=== PATIENT | female | born 1950 | race Caucasian/White ===

== ENCOUNTER 2018-10-08 00:30 | Outpatient (CLI) | payer OTHER, SELFPAY ==
--- NOTE | 2018-10-08 14:00 | MERGE_ITS ---
*[facility]* *[facility]* [address] [place] [address] Date of study: 10/08/2018 Transthoracic Echocardiography M-mode, complete 2D, complete spectral Doppler, and color Doppler *STUDY CONCLUSIONS* Summary: 1. Left ventricle: The cavity size was normal. Wall thickness was increased in a pattern of mild LVH. Systolic function was hyperdynamic. The estimated ejection fraction was 65-70%. There was no dynamic obstruction. Wall motion was normal; there were no regional wall motion abnormalities. 2. Aortic valve: There was very mild stenosis. Peak velocity (S): 2.5m/sec. Mean gradient (S): 11mm Hg. Valve area (VTI): 1.9cm^2. 3. Mitral valve: Mildly to moderately calcified annulus. 4. Right ventricle: The cavity size was normal. Wall thickness was normal. Systolic function was normal. *PATIENT PRESENTATION* Height: 162.6cm ((64in) ) S/D Pressure: 117 / 69 Weight: 94.8kg ((208.6lb) ) BSA: 2.11m^2 Test start time: 02:15 PM. Test stop time: 03:15 PM. ORDERING Katherine Hassan REFERRING Katherine Hassan PERFORMING Unknown PERFORMING [facility] SUPERVISOR AGENCY APPOINTMENTS RT Aylin EmersonR)(SHELLY)DENNIS *PROCEDURE DATA* Procedure information: The patient was identified by two identifiers. This study was interpreted by [facility]. Pertinent images and digital data are archived for permanent storage and are available for subsequent review. No prior study was available for comparison. Study status: Routine. Transthoracic echocardiography. M-mode, complete 2D, complete spectral Doppler, and color Doppler. A Transthoracic Echocardiogram was performed. Scanning was performed from the parasternal, apical, subcostal, and suprasternal notch acoustic windows. Images were obtained using an [id number] cardiac ultrasound machine. Image quality was adequate. Study completion: The patient tolerated the procedure well. There were no complications. History: PMH: Heart murmur systolic. *CARDIAC ANATOMY* Left ventricle: The cavity size was normal. Wall thickness was increased in a pattern of mild LVH. Systolic function was hyperdynamic. The estimated ejection fraction was 65-70%. There was no dynamic obstruction. Wall motion was normal; there were no regional wall motion abnormalities. Diastolic parameters were not diagnostic. Aortic valve: Trileaflet; normal thickness, mildly calcified leaflets. Mobility was not restricted. Doppler: There was very mild stenosis. There was no significant regurgitation. VTI ratio of LVOT to aortic valve: 0.55. Valve area (VTI): 1.9cm^2. Indexed valve area (VTI): 0.9cm^2/m^2. Peak velocity ratio of LVOT to aortic valve: 0.54. Valve area (Vmax): 1.9cm^2. Indexed valve area (Vmax): 0.9cm^2/m^2. Mean velocity ratio of LVOT to aortic valve: 0.58. Valve area (Vmean): 2cm^2. Indexed valve area (Vmean): 0.9cm^2/m^2. Mean gradient (S): 11mm Hg. Peak gradient (S): 24.6mm Hg. Aorta: Aortic root: The aortic root was normal in size. Ascending aorta: The ascending aorta was normal in size. Mitral valve: Mildly to moderately calcified annulus. Mobility was not restricted. Doppler: Transvalvular velocity was within the normal range. There was no evidence for stenosis. There was no significant regurgitation. Valve area by pressure half-time: 2.6cm^2. Indexed valve area by pressure half-time: 1.2cm^2/m^2. Peak gradient (D): 2.4mm Hg. Left atrium: The atrium was normal in size. Right ventricle: The cavity size was normal. Wall thickness was normal. Systolic function was normal. Pulmonic valve: Doppler: Transvalvular velocity was within the normal range. There was no evidence for stenosis. There was no significant regurgitation. Tricuspid valve: Structurally normal valve. Doppler: Transvalvular velocity was within the normal range. There was no evidence for stenosis. There was mild regurgitation. Pulmonary artery: Pulmonary systolic pressure was within the normal range, in the range of 30mm Hg to 35mm Hg. Right atrium: The atrium was normal in size. Pericardium: There was no pericardial effusion. Systemic veins: Inferior vena cava: Well visualized. The vessel was patent and normal in size. The respirophasic diameter changes were blunted (less than 50%). Baseline ECG: Sinus bradycardia. Measurements Left ventricle Value Reference LV ID, ED, PLAX 4.3 cm 3.5 - 6.0 LV ID, ES, PLAX 2.8 cm 2.1 - 4.0 LV PW thickness, ED, PLAX 1.3 cm LV end-diastolic volume, 1-p A2C 61 ml LV ejection fraction, 1-p A2C 69 % LV end-diastolic volume, 1-p A4C 56 ml LV ejection fraction, 1-p A4C 73 % LV e', lateral 0.085 m/sec LV E/e', lateral 9 LV e', medial 0.061 m/sec LV E/e', medial 13 LV e', average 0.073 m/sec LV E/e', average 11 Ventricular septum Value Reference IVS thickness, ED, PLAX 1.2 cm LVOT Value Reference LVOT ID, A-P 2.1 cm LVOT area 3.5 cm^2 LVOT peak velocity, S 1.35 m/sec LVOT mean velocity, S 0.9 m/sec LVOT VTI, S 27.5 cm LVOT peak gradient, S 7.3 mm Hg LVOT mean gradient, S 3.7 mm Hg Stroke volume (SV), LVOT DP 95 ml Stroke index (SV/bsa), LVOT DP 45 ml/m^2 Aortic valve Value Reference Aortic valve peak velocity, S 2.5 m/sec Aortic valve mean velocity, S 1.56 m/sec Aortic valve VTI, S 50.0 cm Aortic mean gradient, S 11 mm Hg Aortic peak gradient, S 24.6 mm Hg VTI ratio, LVOT/AV 0.55 Aortic valve area, VTI 1.9 cm^2 Velocity ratio, peak, LVOT/AV 0.54 Aortic valve area, peak velocity 1.9 cm^2 Velocity ratio, mean, LVOT/AV 0.58 Aortic valve area, mean velocity 2 cm^2 Aortic valve area/bsa, mean velocity 0.9 cm^2/m^2 Aorta Value Reference Aortic root ID, ED 3.0 cm Ascending aorta ID, A-P, S 3.3 cm Left atrium Value Reference LA ID, A-P, ES 3.2 cm LA ID/bsa, A-P 1.5 cm/m^2 <=2.2 LA area, ES, A4C 20.9 cm^2 8.8 - 23.4 LA area, ES, A2C 22 cm^2 LA volume/bsa, ES, 1-p A4C 31 ml/m^2 LA volume, ES, 2-p 62 ml LA volume/bsa, ES, 2-p 29 ml/m^2 LA/aortic root ratio 1.07 Mitral valve Value Reference Mitral E-wave peak velocity 0.77 m/sec Mitral A-wave peak velocity 0.92 m/sec Mitral deceleration time (H) 295 ms 150 - 230 Mitral pressure half-time 86 ms Mitral peak gradient, D 2.4 mm Hg Mitral E/A ratio, peak 0.84 Mitral valve area, PHT, DP 2.6 cm^2 Pulmonary veins Value Reference Pulmonary vein peak velocity, S 0.74 m/sec Pulmonary vein peak velocity, D 0.47 m/sec Pulmonary vein velocity ratio, peak, 1.58 S/D Pulmonary vein A-wave reversal peak 0.34 m/sec velocity Pulmonary vein A-wave reversal 135 ms duration Tricuspid valve Value Reference Tricuspid regurg peak velocity 2.7 m/sec Tricuspid peak RV-RA gradient 28.9 mm Hg Right atrium Value Reference RA area, ES, A4C 18 cm^2 8.3 - 19.5 Legend: (L) and (H) deana values outside specified reference range. I have personally reviewed the images and have reviewed and edited the reported findings. Electronically signed by Alberto Garcia 10/08/2018 15:55
== END 2018-10-08 00:50 ==
PROVIDERS: PCP Family Medicine; Visit Provider Family Medicine
DX: R01.1 Cardiac murmur, unspecified (principal); I35.0 Nonrheumatic aortic (valve) stenosis
CPT/HCPCS: 93306

== ENCOUNTER 2019-03-14 10:17 | Outpatient (REF) | payer OTHER, SELFPAY ==
[2019-03-14 20:03] LABS: Abs Immature Grans 0.01 k/cumm (0.0-0.09); Absolute Basophil Count 0.04 k/cumm (0.0-0.2); Absolute Eosinophil Count 0.14 k/cumm (0.0-0.7); Absolute Lymphocyte Count 1.39 k/cumm (1.2-3.4); Absolute Monocyte Count 0.38 k/cumm (0.11-0.7); Absolute Neutrophil Count 2.24 k/cumm (1.2-6.7); Eosinophils % 3.3; HCT 42.2 % (36.0-46.0); HGB 14.1 g/dL (12.0-15.5); Immature Grans % 0.2; Lymphocytes % 33.1; Mean Corp. HGB Concentration 33.4 g/dL (32.0-36.0); Mean Corpuscular Hemoglobin 33.4 pg (27.0-33.0); Neutrophils % 53.4; Platelet Count 102 x1000/uL (130-400); RBC 4.22 m/cumm (4.00-5.20); RBC Distribution Width 12.8 % (11.7-14.6)
[2019-03-14 20:45] LABS: ALT 57 U/L (12-78); AST 56 U/L (15-37); Albumin 3.5 g/dL (3.4-5.0); Alkaline Phosphatase 75 U/L (46-116); BUN 23 mg/dL (7-18); Bilirubin, Total 1.4 mg/dL (0.2-1.0); CREATININE 1.21 mg/dL (0.55-1.02); Chloride 107 mmol/L (98-107); Cholesterol 170 mg/dL (50-200); Estimated GFR 43.99 (mL/min/1.73m2); Glucose 98 mg/dL (70-100); HDL Cholesterol 64 mg/dL (40-60); LDL CHOLESTEROL 88 mg/dL (<100); Potassium 4.7 mmol/L (3.5-5.1); Sodium 142 mmol/L (136-145); Total Protein 6.7 g/dL (6.4-8.2); Triglyceride 102 mg/dL (30-150)
== END 2019-03-14 10:37 ==
LOC: NCHCN 10:17
PROVIDERS: PCP Family Medicine; Visit Provider Family Medicine
DX: E78.5 Hyperlipidemia, unspecified (principal); I10 Essential (primary) hypertension; N95.0 Postmenopausal bleeding; K76.0 Fatty (change of) liver, not elsewhere classified
CPT/HCPCS: 80053; 80061; 83721; 85025

== ENCOUNTER 2019-12-08 16:09 | Outpatient (REF) | payer OTHER, SELFPAY ==
--- NOTE | 2019-12-08 15:30 | SKI_PTH ---
PATIENT: Jory Fleming LOC: [facility] [place] U#:[id number] AGE/SX: 69/F ROOM: RE12/08/[address]: Davis Boggs DO : 1950 BED: DIS: 12/08/2019 SPEC #: [id number] RECD: 12/08/19 18:10 STATUS: NIC REQ #: [id number] MIKI: 12/08/19 15:[address]: Davis Boggs DEPT: Surgical Specimen RECD BY: Betty Thayer ENTERED: 12/08/19 18:11 SP TYPE: SKI OTHR DR: Katherine Hassan V Tissues: 1 - SKIN BIOPSY(SHAVE/PUNCH) Procedures: SKIN LEVEL 4 Comments: [id number]
== END 2019-12-08 16:29 ==
LOC: LBN 16:09
PROVIDERS: PCP Family Medicine; Visit Provider Otolaryngology Otolaryngology/Facial Plastic Surgery
DX: H00.15 Chalazion left lower eyelid (principal); H01.8 Other specified inflammations of eyelid
CPT/HCPCS: 88305

== ENCOUNTER 2020-03-10 12:20 | Outpatient (REF) | payer OTHER, SELFPAY ==
[2020-03-10 19:23] LABS: HCT 40.3 % (36.0-46.0); HGB 13.9 g/dL (12.0-15.5); Mean Corp. HGB Concentration 34.5 g/dL (32.0-36.0); Mean Corpuscular Hemoglobin 34.2 pg (27.0-33.0); Mean Corpuscular Volume 99.3 fL (80-95); Mean Platelet Volume 12.5 fL (8.0-11.0); Platelet Count 106 x1000/uL (130-400); RBC 4.06 m/cumm (4.00-5.20); RBC Distribution Width 12.3 % (11.7-14.6); White Blood Cell Count 3.57 k/cumm (4.4-10.8)
[2020-03-10 20:48] LABS: ALT 70 U/L (14-59); AST 79 U/L (15-37); Albumin 3.6 g/dL (3.4-5.0); Alkaline Phosphatase 74 U/L (46-116); Anion Gap 10.8 mmol/L (3-11); BUN 12 mg/dL (7-18); Bilirubin, Total 1.4 mg/dL (0.2-1.0); CO2 23.2 mmol/L (21.0-32.0); CREATININE 1.18 mg/dL (0.55-1.02); Calcium 9.1 mg/dL (8.5-10.1); Chloride 106 mmol/L (98-107); Estimated GFR 45.15 (mL/min/1.73m2); Glucose 234 mg/dL (74-106); HDL Cholesterol 53 mg/dL (40-60); LDL CHOLESTEROL 96 mg/dL (<100); Potassium 3.7 mmol/L (3.5-5.1); Sodium 140 mmol/L (136-145); Total Protein 6.9 g/dL (6.4-8.2)
[2020-03-10 21:02] LABS: Uric Acid 6.7 mg/dL (2.6-6.0)
[2020-03-12 08:25] LABS: CEA 1.4 ng/mL (See Note)
== END 2020-03-10 12:40 ==
LOC: NCHCN 12:20
PROVIDERS: PCP Family Medicine; Visit Provider Nurse Practitioner Family
DX: R22.30 Localized swelling, mass and lump, unspecified upper limb (principal); K74.69 Other cirrhosis of liver; I10 Essential (primary) hypertension; E78.5 Hyperlipidemia, unspecified; Z85.038 Personal history of other malignant neoplasm of large intestine
CPT/HCPCS: 80053; 83721; 85027; 82378; 83718; 84550

== ENCOUNTER 2020-03-26 11:02 | Outpatient (REF) | payer OTHER, SELFPAY ==
--- NOTE | 2020-03-26 10:00 | PAPFT_PTH ---
PATIENT: Jory Fleming LOC: [facility]#:[id number] AGE/SX: 70/F ROOM: RE03/26/[address]: Katherine Hassan V : 1950 BED: DIS: 03/26/2020 SPEC #: [id number] RECD: 03/29/20 12:33 STATUS: NIC RESouleymane #: [id number] MIKI: 03/26/20 10:[address]: Katherine Hassan V DEPT: [facility] Cytology RECD BY: Betty Thayer Tissues: 1 - CX/ENDOCX FOR PAP SMEARS Procedures: PAP THIN PREP/UVM Screening HPV DNA PROBE Comments: [id number]
[2020-03-29 13:31] LABS: Lyme Ab w Rflx to Lyme Confirm Negative (Negative)
[2020-03-30 20:05] LABS: Anaplasma phagocytophilum Negative (Negative); B. miyamotoi PCR Negative (Negative); Babesia divergens/MO-1 Negative (Negative); Babesia duncani Negative (Negative); Babesia microti Negative (Negative); Ehrlichia chaffeensis Negative (Negative); Ehrlichia ewingii/canis Negative (Negative); Ehrlichia muris eauclairensis Negative (Negative)
== END 2020-03-26 11:22 ==
LOC: NCHCN 11:02
PROVIDERS: PCP Family Medicine; Visit Provider Family Medicine
DX: W57.XXXA Bitten or stung by nonvenomous insect and other nonvenomous arthropods, initial encounter (principal); T14.8XXA Other injury of unspecified body region, initial encounter; Z12.4 Encounter for screening for malignant neoplasm of cervix; Z01.419 Encounter for gynecological examination (general) (routine) without abnormal findings; Z11.51 Encounter for screening for human papillomavirus (HPV)
CPT/HCPCS: 87798; 88142; 86618; 87624

== ENCOUNTER 2021-03-21 09:22 | Outpatient (REF) | payer OTHER, SELFPAY ==
[2021-03-21 16:43] LABS: Abs Immature Grans 0.01 10^3/uL (0.0-0.06); Absolute Basophil Count 0.04 10^3/uL (0.0-0.2); Absolute Eosinophil Count 0.13 10^3/uL (0.0-0.7); Absolute Lymphocyte Count 1.18 10^3/uL (1.2-3.4); Absolute Monocyte Count 0.35 10^3/uL (0.1-0.8); Absolute Neutrophil Count 1.99 10^3/uL (1.2-6.7); Basophils % 1.1; Eosinophils % 3.5; HCT 40.4 % (36.0-46.0); HGB 13.9 g/dL (11.2-15.7); Immature Grans % 0.3; Lymphocytes % 31.9; MCH 34.7 pg (27.0-33.0); MCHC 34.4 % (32.0-36.0); MCV 100.7 fL (80-95); MPV 11.9 fL (8.0-11.0); Monocytes % 9.5; Neutrophils % 53.7; Nucleated RBC 0 %; Platelet Count 104 10^3/uL (130-400); RBC 4.01 10^6/uL (3.93-5.22); RDW-SD 45.2 fL
[2021-03-21 17:00] LABS: ALT 89 U/L (14-59); AST 95 U/L (15-37); Albumin 3.5 g/dL (3.4-5.0); Alkaline Phosphatase 70 U/L (46-116); Anion Gap 8.8 mmol/L (3-11); BUN 14 mg/dL (7-18); Bilirubin, Total 1.4 mg/dL (0.2-1.0); CO2 27.2 mmol/L (21.0-32.0); CREATININE 1.1 mg/dL (0.55-1.02); Calcium 9.3 mg/dL (8.5-10.1); Chloride 109 mmol/L (98-107); Estimated GFR 48.82 (mL/min/1.73m2); Glucose 118 mg/dL (74-106); Potassium 4.6 mmol/L (3.5-5.1); Sodium 145 mmol/L (136-145); Total Protein 6.7 g/dL (6.4-8.2)
[2021-03-21 17:21] LABS: Hemoglobin A1C 5.9 % (<5.7)
[2021-03-22 10:00] LABS: Hepatitis B Surface Ag Negative (Negative)
[2021-03-22 11:02] LABS: Hep A Total Ab w Rflx IgM Positive (Negative)
[2021-03-22 12:31] LABS: Hep A Antibody IgM Negative (Negative)
[2021-03-23 09:01] LABS: AFP Tumor Marker 4.8 ng/mL (<8.1)
== END 2021-03-21 09:23 | disposition home or self-care (01) ==
LOC: NCHCN 09:22
PROVIDERS: PCP Family Medicine; Visit Provider Family Medicine
DX: I10 Essential (primary) hypertension (principal); K76.0 Fatty (change of) liver, not elsewhere classified; K74.69 Other cirrhosis of liver; K52.9 Noninfective gastroenteritis and colitis, unspecified; R73.09 Other abnormal glucose
CPT/HCPCS: 80053; 86709; 87340; 82105; 83036; 85025

== ENCOUNTER 2021-05-26 03:07 | Outpatient (CLI) | payer OTHER, SELFPAY ==
--- NOTE | 2021-05-26 | DI.US_ITS ---
Exam(s) US ABDOMEN EXAM: US ABDOMEN CLINICAL HISTORY: CIRRHOSIS,K74.60 TECHNIQUE: Ultrasound of complete upper abdomen performed using standard protocol. COMPARISON: US ABDOMEN ULTRASOUND (P) from 11/29/2015 US Cardiac from 10/08/2018 FINDINGS: There is no ascites evident. LIVER: Liver is prominent in size and is again noted be hyperechoic indicating steatosis. Appearance of the liver is somewhat cirrhotic. There are no discrete focal hepatic lesions identified. GALLBLADDER/BILIARY: There are gallstones noted. Gallbladder wall is not edematous. Common hepatic duct is not dilated, measuring 2 millimeters. PANCREAS: There is no evidence of pancreatic mass nor dilatation of the pancreatic duct. SPLEEN: The spleen is not enlarged and there are no intrasplenic lesions evident. KIDNEYS:Kidneys exhibit normal size with no evidence of solid mass, nor cysts evident. Small 3 joseline meter echogenic focus in the left kidney may be a small nonobstructive calculus. ABDOMINAL AORTA: There is no evidence of abdominal aortic aneurysm. IVC: Normal diameter where visualized. IMPRESSION: 1. Cholelithiasis. No evidence of obvious acute cholecystitis nor dilatation of the biliary tree. 2. Hepatic steatosis and possible element of cirrhosis. No discrete focal hepatic lesions. No asci jagjit. 3. Possible small 3 millimeter nonobstructive calculus in the left kidney. DATA REPOSITORY:
== END 2021-05-26 03:27 ==
PROVIDERS: PCP Family Medicine; Visit Provider Internal Medicine Gastroenterology
DX: K80.20 Calculus of gallbladder without cholecystitis without obstruction (principal); K76.0 Fatty (change of) liver, not elsewhere classified
CPT/HCPCS: 76700

== ENCOUNTER 2021-09-07 09:50 | Outpatient (REF) | payer MEDICARE, SELFPAY ==
[2021-09-07 14:11] LABS: Abs Immature Grans 0.01 10^3/uL (0.0-0.06); Absolute Basophil Count 0.05 10^3/uL (0.0-0.2); Absolute Eosinophil Count 0.11 10^3/uL (0.0-0.7); Absolute Lymphocyte Count 1.08 10^3/uL (1.2-3.4); Absolute Monocyte Count 0.34 10^3/uL (0.1-0.8); Absolute Neutrophil Count 2.25 10^3/uL (1.2-6.7); Basophils % 1.3; Eosinophils % 2.9; HGB 13.4 g/dL (11.2-15.7); Immature Grans % 0.3; Lymphocytes % 28.1; MCH 34.1 pg (27.0-33.0); MCHC 33.5 % (32.0-36.0); MCV 101.8 fL (80-95); MPV 12.3 fL (8.0-11.0); Monocytes % 8.9; Neutrophils % 58.5; Nucleated RBC 0 %; Platelet Count 95 10^3/uL (130-400); RBC 3.93 10^6/uL (3.93-5.22); RDW-SD 45.6 fL; WBC 3.84 10^3/uL (4.4-10.8)
[2021-09-07 15:44] LABS: Hemoglobin A1C 5.7 % (<5.7)
[2021-09-07 15:46] LABS: Albumin 3.5 g/dL (3.4-5.0); BUN 11 mg/dL (7-18); Bilirubin, Total 1.5 mg/dL (0.2-1.0); CREATININE 1.1 mg/dL (0.55-1.02); Estimated GFR 48.82 (mL/min/1.73m2); Glucose 98 mg/dL (74-106); Total Protein 6.7 g/dL (6.4-8.2)
[2021-09-07 15:47] LABS: ALT 84 U/L (14-59); AST 78 U/L (15-37); Alkaline Phosphatase 70 U/L (46-116); Anion Gap 7.7 mmol/L (3-11); CO2 29.3 mmol/L (21.0-32.0); Chloride 108 mmol/L (98-107); Creatine Kinase 52 U/L (26-192); Potassium 4.6 mmol/L (3.5-5.1); Sodium 145 mmol/L (136-145)
[2021-09-08 04:12] LABS: Vitamin D 25 Total 58.7 ng/mL (30-100)
== END 2021-09-07 09:51 | disposition home or self-care (01) ==
LOC: NCHCN 09:50
PROVIDERS: PCP Family Medicine; Visit Provider Family Medicine
DX: Z00.00 Encounter for general adult medical examination without abnormal findings (principal)
CPT/HCPCS: 80053; 82306; 82550; 83036; 85025

== ENCOUNTER 2022-03-06 17:05 | Outpatient (REF) | payer MEDICARE, SELFPAY ==
[2022-03-06 21:28] LABS: HCT 43.6 % (36.0-46.0); HGB 14.5 g/dL (11.2-15.7); MCH 34.4 pg (27.0-33.0); MCHC 33.3 % (32.0-36.0); MCV 103 fL (80-95); MPV 12.4 fL (8.0-11.0); Platelet Count 105 10^3/uL (130-400); RBC 4.22 10^6/uL (3.93-5.22); RDW 12.6 % (11.7-14.6); RDW-SD 47.8 fL; WBC 3.69 10^3/uL (4.4-10.8)
[2022-03-06 21:52] LABS: ALT 102 U/L (14-59); AST 116 U/L (15-37); Albumin 3.8 g/dL (3.4-5.0); Alkaline Phosphatase 75 U/L (46-116); Anion Gap 11.4 mmol/L (3-11); BUN 15 mg/dL (7-18); Bilirubin, Total 1.7 mg/dL (0.2-1.0); CO2 23.6 mmol/L (21.0-32.0); CREATININE 1.2 mg/dL (0.55-1.02); Calcium 8.9 mg/dL (8.5-10.1); Calculated LDL 98 mg/dL (<100); Chloride 107 mmol/L (98-107); Cholesterol 191 mg/dL (<200); Estimated GFR 44.04 (mL/min/1.73m2); Glucose 121 mg/dL (74-106); HDL Cholesterol 72 mg/dL (40-60); Potassium 4.3 mmol/L (3.5-5.1); Sodium 142 mmol/L (136-145); Triglyceride 105 mg/dL (<150)
[2022-03-08 11:35] LABS: Lyme Ab w Rflx to Lyme Confirm Negative (Negative)
[2022-03-09 19:12] LABS: Anaplasma phagocytophilum Negative (Negative); B. miyamotoi PCR Negative (Negative); Babesia divergens/MO-1 Negative (Negative); Babesia duncani Negative (Negative); Babesia microti Negative (Negative); Ehrlichia chaffeensis Negative (Negative); Ehrlichia ewingii/canis Negative (Negative); Ehrlichia muris eauclairensis Negative (Negative)
== END 2022-03-06 17:06 | disposition home or self-care (01) ==
LOC: NCHCN 17:05
PROVIDERS: PCP Family Medicine; Visit Provider Family Medicine
DX: E78.5 Hyperlipidemia, unspecified (principal); N28.9 Disorder of kidney and ureter, unspecified; K74.69 Other cirrhosis of liver; T14.8XXA Other injury of unspecified body region, initial encounter; W57.XXXA Bitten or stung by nonvenomous insect and other nonvenomous arthropods, initial encounter
CPT/HCPCS: 80053; 80061; 85027; 87798; 86618

== ENCOUNTER 2023-05-22 09:30 | Outpatient (REF) | payer MEDICARE, SELFPAY ==
--- OUTSIDE RECORDS SUMMARY | 2023-05-22 09:35 | XMS_ITS | Continuity of Care Document ---
Author Name Unknown Organization [facility] Ambulatory Clinics Address [address] [place] [address] Care Team Providers Care Refrigeration Manager Name Role Phone Katherine Hassan Primary Care Physician [phone] Encounter [facility] FIN NBR [id number] Date(s): 10/26/22 - 10/26/22 [facility] Ambulatory Clin[facility] [address] [place] [address]- Encounter Diagnosis Cirrhosis - non-alcoholic(Discharge Diagnosis) - 10/26/22 Hepatitis B vaccination administered at current visit(Discharge Diagnosis) - 10/26/22 Angiodysplasia of colon(Discharge Diagnosis) - 10/26/22 Discharge Disposition: Home or Self Care Attending Physician: Jessy Ross APRN Allergies, Adverse Reactions, Alerts Substance Reaction Severity Status codeine Headache Unknown Active penicillin Fever Rash Unknown Active anastrozole Unknown Active Percocet Unknown Active Assessment and Plan Future Appointments Future Scheduled Tests Radiology* US Abdomen Limited 10/26/22 Functional Status 10/26/22 Living Environment Home Environment No qualifying data available Recent Travel History No recent travel Other exposure to Infectious Disease Non e Immunizations Given and Recorded Vaccine Date Status Refusal Reason hepatitis B adult vaccine 1 10/26/22 Given 1Result Comment: Pt will get subsequent doses at PCP at her request. Medications biotin 10 mg oral tablet 10 mg = 1 tab, Oral, Daily, # 30 tab, 0 Refill(s) Start Date: 08/29/22 Status: Ordered calcium carbonate 600 mg (elemental Ca 240 mg) oral tablet 600 mg 1 tab, Oral, Daily, # 60 tab, 0 Refill(s) Start Date: 08/29/22 Status: Ordered Colace 100 mg oral capsule 100 mg = 1 cap, Oral, BID, PRN as needed for constipation, # 20 cap, 0 Refill(s) Start Date: 08/29/22 Status: Ordered famciclovir 125 mg oral tablet 125 mg = 1 tab, Oral, BID, PRN cold sore, # 10 tab, 0 Refill(s) Start Date: 08/29/22 Stop Date: 09/03/22 Status: Ordered Fish Oil oral capsule 1 cap, Oral, Daily, # 100 cap, 0 Refill(s) Start Date: 08/29/22 Status: Ordered furosemide 20 mg oral tablet 20 mg = 1 tab, Oral, Daily, # 30 tab, 0 Refill(s) Start Date: 08/29/22 Status: Ordered gabapentin 100 mg oral capsule 100 mg = 1 cap, Oral, TID, # 90 cap, 0 Refill(s) Start Date: 08/29/22 Status: Ordered Glucosamine Chondroitin oral capsule 1 cap, Oral, Daily, # 50 cap, 0 Refill(s) Start Date: 08/29/22 Status: Ordered lisinopril 5 mg oral tablet 5 mg = 1 tab, Oral, Daily, # 30 tab, 0 Refill(s) Start Date: 08/29/22 Status: Ordered potassium chloride 20 mEq oral tablet, extended release 20 mEq = 1 tab, Oral, Daily, # 30 tab, 0 Refill(s) Start Date: 08/29/22 Status: Ordered simvastatin 10 mg oral tablet 10 mg = 1 tab, Oral, every day at bedtime, # 30 tab, 0 Refill(s) Start Date: 08/29/22 Status: Ordered traMADol 50 mg oral tablet 50 mg = 1 tab, Oral, every 4 hr, PRN as needed for pain, 0 Refill(s) Start Date: 08/29/22 Status: Ordered Vitamin D3 1000 intl units oral tablet 25 mcg = 1 tab, Oral, Daily, # 30 tab, 0 Refill(s) Start Date: 08/29/22 Status: Ordered vitamin E 400 intl units oral capsule 400 IntlUnit = 1 cap, Oral, Daily, # 30 cap, 0 Refill(s) Start Date: 08/29/22 Status: Ordered Problem List Condition Confirmation Course Effective Dates Status H ealth Status Informant Aortic valve stenosis Confirmed Active Arthralgia Confirmed Active Breast cancer Confirmed Active Cancer of colon Confirmed Active Cataract Confirmed Active Cirrhosis - non-alcoholic Confirmed Active Endometrial polyp Confirmed Active Family history of colon cancer Confirmed Active Fatty liver Confirmed Active Hearing loss Confirmed Active Heart murmur Confirmed Active HLD - Hyperlipidemia Confirmed Active HTN - Hypertension Confirmed Active Osteoarthritis Confirmed Active Ovarian mass Confirmed Active Perforation of colon Confirmed Active Renal insufficiency 1 Confirmed Active Squamous blepharitis 2 Confirmed Active 1mild 2left eye, upper and lower lids Procedures Procedure Date Related Diagnosis Body Site Status Esophagogastroduodenoscopy a nd Colonoscopy with Biopsy 1 10/12/22 Comple crys Colonoscopy, flexible; diagn ostic, including collection of specimen(s) by brushing or washing, when performed (separate procedure) 10/11/22 Completed Esophagogastroduodenoscopy, flexible, transoral; diagnostic, including collection of specimen(s) by brushing or washing, when performed (separate procedure) 10/11/22 Completed Bilateral oopherectomy Co mpleted Colonoscopy Completed Large bowel resection 2 C ompleted Total knee replacement Co mpleted 1auto-populated from documented surgical case [id number] Vital Signs Most recent to oldest [Reference Range]: 1 Temperature Temporal Artery [36-38 Deg C ] 36.7 Deg C (10/26/22 8:28 AM) Peripheral Pulse Rate [60-100 bpm] 65 bp m (10/26/22 8:28 AM) Blood Pressure [90-140/60-90 mmHg] 132/7 8mmHg (10/26/22 8:28 AM) Weight 94.2 kg (10/26/22 8:28 AM) Weight Measured (lbs) 207.675 lb (10/26/22 8:28 AM) [place] Body Weight Calculated 57 kg (10/26/22 8:28 AM) Height 165.1 cm (10/26/22 8:28 AM) Height/Length Measured (inches) 65 inch (10/26/22 8:28 AM) BSA Measured 2.08 m2 (10/26/22 8:28 AM) Body Mass Index 34.56 kg/m2 (10/26/22 8:28 AM) Social History Social History Type Response Tobacco Never tobacco user T obacco Use:. Sex Physician Outpatient Note * Jessy Ross APRN: PERFORM Event Display: Office Clinic Note Physician Authored Date: [id number] [place] :1950 Age:72 years Sex:Female Visit Date:10/26/2022 Primary Care Physician: Katherine Hassan Chief Complaint Follow-up EGD and colonoscopy History of Present Illness Patient is a 72-year-old female patient of Dr. Katherine Hassan with a history of uncomplicated Pérez cirrhosis.?? She is here??today as an established patient to follow-up??EGD and colonoscopy. ?? Patient underwent endoscopic ultrasound at [facility] on 10/30/2017 with liver biopsy done at that time. I do not have the pathology report. Patient has been carrying a diagnosis of Pérez cirrhosis since that time. EGD showed no endoscopic evidence of portal hypertension. She has had no compli cations/decompensation. No family history of liver disease. She denies black or bloody stools, lower extremity edema, increasing abdominal girth, easy bruising, or confusion. ?? Patient underwent a perforation of her colon at her index colonoscopy. Last colonoscopy was 08/16/2016 for history of tubulovillous adenoma which was a normal examination with 5-year follow-up recommended. She has not had a follow- up colonoscopy since that time. On 03/02/2022 sodium was 142, total bilirubin 1.7, creatinine 1.2, AST 116, ALT 102, albumin 3.8, platelets of 105,000, MCV 103, hemoglobin 14.5, WBC 3.7. She has not had recent HCC screening. ?? She does not drink alcohol. ??She drinks 2 cups of coffee daily.?? Denies any??gastrointestinal symptoms,??peripheral edema,??changes in gait or mobility. ??Denies any??cognitive or memory dysfunction.?? Denies increasing abdominal girth. ?? 10/12/2022 EGD showed mild portal??hypertensive gastropathy. ?? 10/12/2022 colonoscopy showed??patent colorectal anastomosis.?? There??was no chronic ileocolitis noted. ??There is angiodysplastic??lesion in the proximal ascending colon??and cecum??that was 6 to 8mm in size.?? There was no stigmata of bleeding.?? Segmental biopsies taken throughout??the colon were negative. ?? Family history is remarkable for mother being diagnosed with colon cancer in her 70s, brother from advanced colorectal cancer at 51 years old. Review of Systems Pertinent positives and negatives are discussed in HPI. Physical Exam Vitals & Measurements T:??36.7?C ??(Temporal Artery)?? HR:??65??(Peripheral)?? BP:??132/78?? SpO2:??97%?? HT:??165.1??cm?? WT:??94.2??kg?? BMI:??34.56?? BSA:??2.08?? General: Well-nourished well-developed??female??in no acute distress. HEENT: Head is normocephalic, trachea midline and no cervical lymphadenopathy. ??Sclera are clear. Respiratory: Respirations are even and unlabored. ??Lungs are clear to auscultation. Cardiovascular: Regular rate and rhythm with S1 and S2. Abdomen: Positive bowel sounds x4 quadrants, no masses, no guarding, no tenderness. ??No hepatosplenomegaly. ??Abdomen is soft. Skin: Warm, dry, and pink. ??No spider angiomata, palmar erythema or gynecomastia. Neurological: Alert and oriented x3, speech is clear and gait is steady. Psychological: Pleasant, calm and cooperative. 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 ??EGD's showed mild portal hypertensive gastropathy. ??Advised to repeat in 1 year. ??She is immune to hepatitis A but not to hepatitis B.??first hepatitis B vaccine given today. ??She would like to get her up into her primary care provider's office.?? She will call their office today to make her second appointment for 1 month from now. ??She is due for HCC screening. ??AFP and abdominal ultrasound ordered.?Drink 2 cups of coffee daily. ??She is advised to avoid alcohol??use.?? Weight??loss.?? We will see the patient back in the office??months.?? All of her questions were answered today. Ordered: AFP, Serum, Tumor Marker LC, Blood, Routine, 10/26/22, Once, Lab Collect, Cirrhosis - non-alcoholic, Order for future visit Follow-up Appointment Request [email or web address], *Est. 06/29/23 +/- 28 days, Future Order, f/u PÉREZ cirrohosis, In Approximately, H Gastroenterology Abdomen Limited, 10/26/22, Routine, Reason: HCC screening,cirrhosis, Transport Mode: Ambulatory,Cirrhosis - non-alcoholic, ABN Status: Not Required ?? 2.??Hepatitis B vaccination administered at current visit??Z23 As above. ?? 3.??Angiodysplasia of colon??K55.20 2 angiodysplastic lesions are seen in the colon including the proximal ascending??and sigmoid colon. ??There is no signs of bleeding.?? No cauterization done. ??Advised patient if she develops any melena??or hematochezia she should return??today and may need to be cauterized. ??Segmental biopsies without colitis.?? There is a patent colorectal anastomosis from prior surgery. ??No signs of chronicileocolitis seen.?? It is advised to repeat colonoscopy in 5 years. ?? Voice recognition software utilized which may result in minor residential sales error. Medications and Immunizations This Visit Given hepatitis B adult vaccine, 1 mL, IM. For: Cirrhosis - non-alcoholic Future Orders AFP, Serum, Tumor Marker LC, Blood, Routine, 10/26/22, Once, Lab Collect, Cirrhosis - non-alcoholic, Order for future visit Abdomen Limited, 10/26/22, Routine, Reason: HCC screening,cirrhosis, Transport Mode: Ambulatory,Cirrhosis - non-alcoholic, ABN Status: Not Required Problem List/Past Medical History Ongoing Aortic valve stenosis Arthralgia Breast cancer Cancer of colon Cataract Cirrhosis - non-alcoholic Endometrial polyp Family history of colon cancer Fatty liver Hearing loss Heart murmur HLD - Hyperlipidemia HTN - Hypertension Osteoarthritis Ovarian mass Perforation of colon Renal insufficiency Squamous blepharitis Historical No qualifying data Procedure/Surgical History ???Colonoscopy, flexible; diagnostic, including collection of specimen(s) by brushing or washing, when performed (separate procedure) (10/12/2022)???Esophagogastroduodenoscopy and Colonoscopy with Biopsy (10/12/2022)???Esophagogastroduodenoscopy, flexible, transoral; diagnostic, including collection of specimen(s) by brushing or washing, when performed (separate procedure) (10/12/2022)???Colonoscopy???Large bowel resection???Bilateral oopherectomy???Total knee replacement Medications biotin 10 mg oral tablet, 10 mg= 1 tab, Oral, Daily calcium carbonate 600 mg (elemental Ca 240 mg) oral tablet, 600 mg= 1 tab, Oral, Daily Colace 100 mg oral capsule, 100 mg= 1 cap, Oral, BID, PRN famciclovir 125 mg oral tablet, 125 mg= 1 tab, Oral, BID, PRN Fish Oil oral capsule, 1 cap, Oral, Daily furosemide 20 mg oral tablet, 20 mg= 1 tab, Oral, Daily gabapentin 100 mg oral capsule, 100 mg= 1 cap, Oral, TID Glucosamine Chondroitin oral capsule, 1 cap, Oral, Daily lisinopril 5 mg oral tablet, 5 mg= 1 tab, Oral, Daily potassium chloride 20 mEq oral tablet, extended release, 20 mEq= 1 tab, Oral, Daily simvastatin 10 mg oral tablet, 10 mg= 1 tab, Oral, every night at bedtime traMADol 50 mg oral tablet, 50 mg= 1 tab, Oral, every 4 hr, PRN Vitamin D3 1000 intl units oral tablet, 25 mcg= 1 tab, Oral, Daily vitamin E 400 intl units oral capsule, 400 IntlUnit= 1 cap, Oral, Daily Allergies Percocet anastrozole codeine??(Headache) penicillin??(Fever, Rash) Social History Alcohol Never Electronic Cigarette/Vaping Electronic Cigarette Use: Never. Substance Use Never Tobacco Never tobacco user Tobacco Use:. Family History Cancer: Mother. Heart disease: Father. Family Member(s): ?? FATHER, at age: Unknown. Cause of : Family Member(s): ?? MOTHER, at age: Unknown. Cause of : Immunizations Vaccine Date Status hepatitis B adult vaccine 10/26/2022 Given Comments : Pt will get subsequent doses at PCP at her request. Electronically Signed on 10/26/22 09:04 AM Jessy Ross APRN Patient Care team information Personnel Name: Katherine Hassan Address: Address: [address] [place] [id number]
--- OUTSIDE RECORDS SUMMARY | 2023-05-22 09:36 | XMS_ITS | Continuity of Care Document ---
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(Discharge Diagnosis) - 10/12/22 Unspecified cirrhosis of liver(Discharge Diagnosis) - 10/12/22 Family history of colon cancer(Discharge Diagnosis) - 10/12/22 History of adenomatous polyp of colon(Discharge Diagnosis) - 10/12/22 S/P partial colectomy(Discharge Diagnosis) - 10/12/22 Discharge Disposition: Home or Self Care Attending Physician: Bigg Riley MD Admitting Physician: Bigg Riley MD Referring Physician: Bigg Riley MD Allergies, Adverse Reactions, Alerts Substance Reaction Severity Status codeine Headache Unknown Active penicillin Fever Rash Unknown Active anastrozole Unknown Active Percocet Unknown Active Assessment and Plan Future Appointments Functional Status 10/12/22 ADLs Independent Family Member Travel History No recent t ravel Recent Travel History No recent travel Other exposure to Infectious Disease Non e Medications biotin 10 mg oral tablet 10 [...] non-alcoholic Confirmed Active Endometrial polyp Confirmed Active Fatty liver Confirmed Active Hearing [...] Colonoscopy with Biopsy 1 10/12/22 Comple crys Bilateral oopherectomy Co mpleted Colonoscopy Completed Large bowel resection 2 C ompleted Total knee replacement Co mpleted 1auto-populated from documented surgical case [id number] Vital Signs Most recent to oldest [Reference Range]: 1 2 3 Temperature Tympanic [36.6-37.9 Deg C] 37.4 Deg C (10/12/22 7:45 AM) Temperature Temporal Artery [36-38 Deg C] 36.0 Deg C (10/12/22 9:58 AM) 36.2 Deg C (10/12/22 9:42 AM) 35.9 Deg C *LOW* (10/12/22 9:28 AM) Temperature Temporal Artery (DegF) [97.3-100 Deg F] 97.16 Deg F *LOW* (10/12/22 9:42 AM) 96.62 Deg F *LOW* (10/12/22 9:28 AM) Peripheral Pulse Rate [60-100 bpm] 60 bpm (10/12/22 9:42 AM) 59 bpm *LOW* (10/12/22 9:31 AM) 60 bpm (10/12/22 9:28 AM) Heart Rate Monitored [60-100 bpm] 76 bpm (10/12/22 7:45 AM) Respiratory Rate [12-24 br/min] 12 br/min (10/12/22 9:31 AM) 16 br/min (10/12/22 7:45 AM) Blood Pressure [90-140/60-90 mmHg] 119/76mmHg (10/12/22 9:42 AM) 102/62mmHg (10/12/22 9:31 AM) 101/63mmHg (10/12/22 9:28 AM) Mean Arterial Pressure, Cuff [65-140 mmHg] 90 mmHg (10/12/22 9:42 AM) 75 mmHg (10/12/22 9:31 AM) 76 mmHg (10/12/22 9:28 AM) Mean Arterial Pressure Cuff 90 mmHg (10/12/22 9:42 AM) 74 mmHg (10/12/22 9:31 AM) 73 mmHg (10/12/22 9:28 AM) Blood Pressure Invasive [90-140/60-90 mmHg] 151/81mmHg *HI* (10/12/22 7:45 AM) Weight 90.720 kg (10/09/22 2:10 PM) Weight Dosing 90.720 kg (10/09/22 2:10 PM) Height 165.100 cm (10/09/22 2:10 PM) Height/Length Dosing 165.100 cm (10/09/22 2:10 PM) Social History Social History Type Response Tobacco Never tobacco user T obacco Use:. Sex Hospital Discharge Instructions Patient Education 10/12/2022 08:24:26 Upper Endoscopy, Adult, Care After Upper Endoscopy, Adult, Care After This sheet gives you information about how to care for yourself after your procedure. Your health care provider may also give you more specific instructions. If you have problems or questions, contact your health care provider. What can I expect after the procedure? After the procedure, it is common to have: ??? A sore throat. ??? Mild stomach pain or discomfort. ??? Bloating. ??? Nausea. Follow these instructions at home: ??? Follow instructions from your health care provider about what to eat or drink after your procedure. ??? Return to your normal activities as told by your health care provider. Ask your health care provider what activities are safe for you. ??? Take kkxt-tlh-hevophx and prescription medicines only as told by your health care provider. ??? If you were given a sedative during the procedure, it can affect you for several hours. Do not drive or operate machinery until your health care provider says that it is safe. ??? Keep all follow-up visits as told by your health care provider. This is important. Contact a health care provider if you have: ??? A sore throat that lasts longer than one day. ??? Trouble swallowing. Get help right away if: ??? You vomit blood or your vomit looks like coffee grounds. ??? You have: ??? A fever. ??? Bloody, black, or tarry stools. ??? A severe sore throat or you cannot swallow. ??? Difficulty breathing. ??? Severe pain in your chest or abdomen. Summary ??? After the procedure, it is common to have a sore throat, mild stomach discomfort, bloating, andnausea. ??? If you were given a sedative during the procedure, it can affect you for several hours. Do not drive or operate machinery until your health care provider says that it is safe. ??? Follow instructions from your health care provider about what to eat or drink after your procedure. ??? Return to your normal activities as told by your health care provider. This information is not intended to replace advice given to you by your health care provider. Make sure you discuss any questions you have with your health care provider. Document Revised: 10/12/2020 Document Reviewed: 03/17/2019 [employer] Patient Education ?? 2021 [employer] 10/12/2022 08:24:25 Colonoscopy, Adult, Care After Colonoscopy, Adult, Care After This sheet gives you information about how to care for yourself after your procedure. Your health care provider may also give you more specific instructions. If you have problems or questions, contact your health care provider. What can I expect after the procedure? After the procedure, it is common to have: ??? A small amount of blood in your stool for 24 hours after the procedure. ??? Some gas. ??? Mild cramping or bloating of your abdomen. Follow these instructions at home: Eating and drinking ??? Drink enough fluid to keep your urine pale yellow. ??? Follow instructions from your health care provider about eating or drinking restrictions. ??? Resume your normal diet as instructed by your health care provider. Avoid heavy or fried foods that are hard to digest. Activity ??? Rest as told by your health care provider. ??? Avoid sitting for a long time without moving. Get up to take short walks every 1???2 hours. This is important to improve blood flow and breathing. Ask for help if you feel weak or unsteady. ??? Return to your normal activities as told by your health care provider. Ask your health care provider what activities are safe for you. Managing cramping and bloating ??? Try walking around when you have cramps or feel bloated. ??? Apply heat to your abdomen as told by your health care provider. Use the heat source that your health care provider recommends, such as a moist heat pack or a heating pad. ??? Place a towel between your skin and the heat source. ??? Leave the heat on for 20???30 minutes. ??? Remove the heat if your skin turns bright red. This is especially important if you are unable to feel pain, heat, or cold. You may have a greater risk of getting burned. General instructions ??? If you were given a sedative during the procedure, it can affect you for several hours. Do not drive or operate machinery until your health care provider says that it is safe. ??? For the first 24 hours after the procedure: ??? Do not sign important documents. ??? Do not drink alcohol. ??? Do your regular daily activities at a slower pace than normal. ??? Eat soft foods that are easy to digest. ??? Take ixvh-ang-plefkks and prescription medicines only as told by your health care provider. ??? Keep all follow-up visits as told by your health care provider. This is important. Contact a health care provider if: ??? You have blood in your stool 2???3 days after the procedure. Get help right away if you have: ??? More than a small spotting of blood in your stool. ??? Large blood clots in your stool. ??? Swelling of your abdomen. ??? Nausea or vomiting. ??? A fever. ??? Increasing pain in your abdomen that is not relieved with medicine. Summary ??? After the procedure, it is common to have a small amount of blood in your stool. You may also have mild cramping and bloating of your abdomen. ??? If you were given a sedative during the procedure, it can affect you for several hours. Do not drive or operate machinery until your health care provider says that it is safe. ??? Get help right away if you have a lot of blood in your stool, nausea or vomiting, a fever, or increased pain in your abdomen. This information is not intended to replace advice given to you by your health care provider. Make sure you discuss any questions you have with your health care provider. Document Revised: 10/08/2020 Document Reviewed: 05/10/2020 [employer] Patient Education ?? 2021 [employer] Discharge instructions * Leena Feldman: PERFORM Event Display: Discharge Instructions Authored Date: [id number] GABY PARISH :1950 Age:72 years Sex:Female Visit Date:10/12/2022 Primary Care Physician: Katherine [facility] Discharge Instructions We would like to thank you for allowing us to assist you with your healthcare needs. The following includes patient education materials and information regarding your injury/illness. After you leave the hospital, you may get your health information including your test results, physician notes and discharge information by accessing your Patient Portal. Your Next Steps Discharge Orders Discharge Patient Instructions, Call with any additional questions or concerns Discharge Patient Instructions, Call or come to emergency department for dizziness Discharge Patient Instructions, Call or come to emergency department chest pain, or shortness of breath Discharge Patient Instructions, Call or come to emergency department for fever greater than 100 ??F Discharge Patient Instructions, You should not be responsible for the care of others Discharge Patient Instructions, Do not sign any contracts, make any major decisions, or drive or operate machinery for 24 hours Discharge Patient Instructions, A light first meal may feel better in your stomach Discharge Patient Instructions, It is important that a responsible adult drive you home today Discharge Patient Instructions, Call or come to emergency department if vomiting blood or having black bowel movements, rectal bleeding or passing blood clots Discharge Patient Instructions, Passing gas rectally and belching is normal Discharge Patient Instructions, Cramping and abdominal bloating should subside in 1 hour or so Discharge Patient Instructions, Call or come to emergency department if having unusual pain or severe abdominal pain Discharge Patient Instructions, You may experience some gas cramps and abdominal bloating Discharge Patient Instructions, Avoid alcohol, tranquilizers, sleeping pills, or cold medicines for24 hours Discharge Patient Instructions, You may resume your normal diet and activity in 24 hours Scheduled Future Appointments 2021 8:30 AM EST ?? Medications What How Much When Instructions Next Dose Unchanged ascorbic acid/ chondroitin/ glucosa/ oumar (Glucosamine Chondroitin oral capsule) 1 Capsules Oral (given by mouth) Every day Unchanged biotin (biotin 10 mg oral tablet) 1 tab Oral (given by mouth) Every day Unchanged calcium carbonate (calcium carbonate 600 mg (elemental Ca 240 mg) oral tablet) 1 tab Oral (given by mouth) Every day Unchanged cholecalciferol (Vitamin D3 1000 intl units oral tablet) 1 tab Oral (given by mouth) Every day Unchanged docusate (Colace 100 mg oral capsule) 1 Capsules Oral (given by mouth) 2 times a day as needed for as needed for constipation Unchanged famciclovir (famciclovir 125 mg oral tablet) 1 tab Oral (given by mouth) 2 times a day as needed for cold sore Duration: 5 Days Unchanged furosemide (furosemide 20 mg oral tablet) 1 tab Oral (given by mouth) Every day Unchanged gabapentin (gabapentin 100 mg oral capsule) 1 Capsules Oral (given by mouth) 3 times a day Unchanged lisinopril (lisinopril 5 mg oral tablet) 1 tab Oral (given by mouth) Every day Unchanged omega-3 polyunsaturated fatty acids (Fish Oil oral capsule) 1 Capsules Oral (given by mouth) Every day Unchanged potassium chloride (potassium chloride 20 mEq oral tablet, extended release) 1 tab Oral (given by mouth) Every day Unchanged simvastatin (simvastatin 10 mg oral tablet) 1 tab Oral (given by mouth) Every night at bedtime Unchanged traMADol (traMADol 50 mg oral tablet) 1 tab Oral (given by mouth) Every 4 hours as needed for as needed for pain Unchanged vitamin E (vitamin E 400 intl units oral capsule) 1 Capsules Oral (given by mouth) Every day Your Summary Your Care Team Admitting Physician - Bigg Riley MD Attending Physician - Bigg Riley MD Primary Care Physician - Katherine Hassan Referring Physician - Bigg Riley MD Your Diagnosis 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 Aortic valve stenosis Arthralgia Breast cancer Cancer of colon Cataract Cirrhosis - non-alcoholic Endometrial polyp Fatty liver Hearing loss Heart murmur HLD - Hyperlipidemia HTN - Hypertension Osteoarthritis Ovarian mass Perforation of colon Renal insufficiency Squamous blepharitis Procedures History ???Esophagogastroduodenoscopy and Colonoscopy with Biopsy (10/12/2022) Discharge Vitals Temperature??(Temporal Artery) 96.6 ??F (35.9 ??C) Heart Rate??(Peripheral) 59 Respiratory Rate?? 12 Blood Pressure?? 102/62?? Blood Pressure?? 151/81(Line)?? Allergies Percocet anastrozole codeine??(Headache) penicillin??(Fever, Rash) Education Materials Upper Endoscopy, Adult, Care After This sheet gives you information about how to care for yourself after your procedure. Your health care provider may also give you more specific instructions. If you have problems or questions, contact your health care provider. What can I expect after the procedure? After the procedure, it is common to have: ? A sore throat. ? Mild stomach pain or discomfort. ? Bloating. ? Nausea. Follow these instructions at home: ? Follow instructions from your health care provider about what to eat or drink after your procedure. ? Return to your normal activities as told by your health care provider. Ask your health care provider what activities are safe for you. ? Take whlc-vjo-msoundw and prescription medicines only as told by your health care provider. ? If you were given a sedative during the procedure, it can affect you for several hours. Do not drive or operate machinery until your health care provider says that it is safe. ? Keep all follow-up visits as told by your health care provider. This is important. Contact a health care provider if you have: ? A sore throat that lasts longer than one day. ? Trouble swallowing. Get help right away if: ? You vomit blood or your vomit looks like coffee grounds. ? You have: ? A fever. ? Bloody, black, or tarry stools. ? A severe sore throat or you cannot swallow. ? Difficulty breathing. ? Severe pain in your chest or abdomen. Summary ? After the procedure, it is common to have a sore throat, mild stomach discomfort, bloating, and nausea. ? If you were given a sedative during the procedure, it can affect you for several hours. Do not drive or operate machinery until your health care provider says that it is safe. ? Follow instructions from your health care provider about what to eat or drink after your procedure. ? Return to your normal activities as told by your health care provider. This information is not intended to replace advice given to you by your health care provider. Make sure you discuss any questions you have with your health care provider. Document Revised: 10/12/2020 Document Reviewed: 03/17/2019 [employer] Patient Education ?? 2021 [employer] Colonoscopy, Adult, Care After This sheet gives you information about how to care for yourself after your procedure. Your health care provider may also give you more specific instructions. If you have problems or questions, contact your health care provider. What can I expect after the procedure? After the procedure, it is common to have: ? A small amount of blood in your stool for 24 hours after the procedure. ? Some gas. ? Mild cramping or bloating of your abdomen. Follow these instructions at home: Eating and drinking ? Drink enough fluid to keep your urine pale yellow. ? Follow instructions from your health care provider about eating or drinking restrictions. ? Resume your normal diet as instructed by your health care provider. Avoid heavy or fried foods thatare hard to digest. Activity ? Rest as told by your health care provider. ? Avoid sitting for a long time without moving. Get up to take short walks every 1???2 hours. This isimportant to improve blood flow and breathing. Ask for help if you feel weak or unsteady. ? Return to your normal activities as told by your health care provider. Ask your health care provider what activities are safe for you. Managing cramping and bloating ? Try walking around when you have cramps or feel bloated. ? Apply heat to your abdomen as told by your health care provider. Use the heat source that your health care provider recommends, such as a moist heat pack or a heating pad. ? Place a towel between your skin and the heat source. ? Leave the heat on for 20???30 minutes. ? Remove the heat if your skin turns bright red. This is especially important if you are unable to feel pain, heat, or cold. You may have a greater risk of getting burned. General instructions ? If you were given a sedative during the procedure, it can affect you for several hours. Do not drive or operate machinery until your health care provider says that it is safe. ? For the first 24 hours after the procedure: ? Do not sign important documents. ? Do not drink alcohol. ? Do your regular daily activities at a slower pace than normal. ? Eat soft foods that are easy to digest. ? Take bkyn-qpy-qnshujg and prescription medicines only as told by your health care provider. ? Keep all follow-up visits as told by your health care provider. This is important. Contact a health care provider if: ? You have blood in your stool 2???3 days after the procedure. Get help right away if you have: ? More than a small spotting of blood in your stool. ? Large blood clots in your stool. ? Swelling of your abdomen. ? Nausea or vomiting. ? A fever. ? Increasing pain in your abdomen that is not relieved with medicine. Summary ? After the procedure, it is common to have a small amount of blood in your stool. You may also have mild cramping and bloating of your abdomen. ? If you were given a sedative during the procedure, it can affect you for several hours. Do not drive or operate machinery until your health care provider says that it is safe. ? Get help right away if you have a lot of blood in your stool, nausea or vomiting, a fever, or increased pain in your abdomen. This information is not intended to replace advice given to you by your health care provider. Make sure you discuss any questions you have with your health care provider. Document Revised: 10/08/2020 Document Reviewed: 05/10/2020 [employer] Patient Education ?? 2021 [employer]. Patient Name:GABY PARISH I have received this information and my questions have been answered. Patient/Head Of Marketing Analytics Name: Patient/Head Of Marketing Analytics Signature: Relationship to Patient: Witness Name/Signature: Date: Electronically Signed on: 10/12/2022 09:38 ESTSigned by:ROMI History and physical note * Bigg Riley MD: PERFORM Event Display: History and Physical Authored Date: [id number] G[place]Y PARISH :1950 Age:72 years Sex:Female Visit Date:10/12/2022 Primary Care Physician: Katherine Hassan History of Present Illness 72-year-old female with biopsy-proven Pérez cirrhosis to screen for esophageal varices.?? She has a history of tubulovillous adenoma in 2 first-degree relatives with colorectal cancer. Physical Exam Vitals & Measurements T:??37.4?C ??(Tympanic)?? HR:??76??(Monitored)?? RR:??16?? BP:??151/81(Line)?? SpO2:??98%?? 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 2.??Family history of colon cancer??Z80.0 Colonoscopy today. 3.??History of adenomatous polyp of colon??Z86.010 Unspecified cirrhosis of liver??K74.60 Orders: Normal Saline Flush, 10 mL, IV Flush, Injection, As Directed, PRN gasoline finisher, First Dose: 10/12/22 8:07:00 EST, Routine Sodium Chloride 0.9% 1,000 mL, Total Volume (mL): 1,000, 1,000 mL, Soln-IV, IV, 50 mL/hr, Start Date: 10/12/22 8:06:00 EST, 90.72 kg, Populate Charting Weight From Order, 2.04, m2 Blood Glucose Monitoring POC RE, 10/12/22 8:06:00 EST, Stop date 10/12/22 8:06:00 EST NPO, 10/12/22 8:06:00 EST, Constant Indicator Obtain consent, 10/12/22 8:06:00 EST, Constant Order Peripheral IV Insertion, 10/12/22 8:06:00 EST Saline Lock Convert From IV, 10/12/22 8:06:00 EST, Stop date 10/12/22 8:06:00 EST Vital Signs, 10/12/22 8:06:00 EST, Stop date 10/12/22 8:06:00 EST, Routine Problem List/Past Medical History Ongoing Aortic valve stenosis Arthralgia Breast cancer Cancer of colon Cataract Cirrhosis - non-alcoholic Endometrial polyp Fatty liver Hearing loss Heart murmur HLD - Hyperlipidemia HTN - Hypertension Osteoarthritis Ovarian mass Perforation of colon Renal insufficiency Squamous blepharitis Historical No qualifying data Procedure/Surgical History ???Colonoscopy???Large bowel resection???Bilateral oopherectomy???Total knee replacement Medications Inpatient Normal Saline Flush, 10 mL, IV Flush, As Directed, PRN Sodium Chloride 0.9% 1,000 mL, 1000 mL, IV Home biotin 10 mg oral tablet, 10 mg= [...] Percocet anastrozole codeine??(Headache) penicillin??(Fever, Rash) Social History Electronic Cigarette/Vaping Electronic Cigarette Use: Never. Tobacco Never tobacco user Tobacco Use:. Electronically Signed on 10/12/22 08:33 AM Bigg Riley MD Patient Care team information Personnel Name: Katherine Hassan Address: Address: [address] [place] [id number]
--- OUTSIDE RECORDS SUMMARY | 2023-05-22 09:36 | XMS_ITS | Continuity of Care Document ---
Author Name Unknown Organization [facility] Address [address] [place] [phone] Care Team Providers Care Subassembler Name Role Phone Katherine Hassan Primary Care Physician Encounter [facility] FIN NBR [id number] Date(s): 10/26/22 - 10/26/[address] [address] Discharge Disposition: Home or Self Care Attending Physician: Jessy Ross APRN Admitting Physician: Jessy Ross APRN Allergies, Adverse Reactions, Alerts Substance Reaction Severity Status codeine Headache Unknown Active penicillin Fever Rash Unknown Active anastrozole Unknown Active Percocet Unknown Active Assessment and Plan Future Appointments Future Scheduled Tests Radiology* US Abdomen Limited 10/26/22 Immunizations Given and Recorded Vaccine Date Status [...] Co mpleted 1auto-populated from documented surgical case [id number] Results Laboratory List Name Date AFP, Serum, Tumor Marker LC 10/26/22 Most recent to oldest [Reference Range]: 1 AFP, S, Tumor Marker LC [0.0-9.2 ng/mL] 4.7 ng/mL 1 *NA* (10/26/22 9:07 AM) 1Result Comment: [facility] Electrochemiluminescence Immunoassay (ECLIA) Values obtained with different assay methods or kits cannot be used interchangeably. Results cannot be interpreted as absolute evidence of the presence or absence of malignant disease. This test is not interpretable in females. Performed At: RN [facility] [address] [id number] Cheyanne Pereyra MD Ph:[phone] Social History Social History Type Response Tobacco Never tobacco user T obacco Use:. Sex Patient Care team information Personnel Name: Natyrachael Katherine Esmer Address: Address: [address] [place] [phone]
--- OUTSIDE RECORDS SUMMARY | 2023-05-22 09:36 | XMS_ITS | Continuity of Care Document ---
Author Name Unknown Organization [facility] Address [address] [place] [address] Care Team Providers Care Braille And Talking Books Clerk Name Role Phone EDGAR ZUNIGA Primary Care Physician [phone] Encounter [facility] NBR [id number] Date(s): 04/06/23 - 04/06/23 [facility] [address] [place], [place] [address] Discharge Disposition: Home Allergies, Adverse Reactions, Alerts Substance Reaction Severity Status codeine Headache Unknown Active penicillin Fever Rash Unknown Active anastrozole Unknown Active Percocet Unknown Active Assessment and Plan Future Scheduled Tests Laboratory* AFP, Serum, Tumor Marker LC 04/06/23 Immunizations Given and Recorded Vaccine Date Status Refusal Reason hepatitis B adult vaccine 04/06/23 Given hepatitis B adult vaccine 11/27/22 Given hepatitis B adult vaccine 1 10/26/22 Given [...] Effective Dates Status H ealth Status Informant Anastomosis Confirmed Active Angiodysplasia of colon Confirmed Active Aortic valve stenosis Confirmed Active Arthralgia Confirmed Active Breast cancer Confirmed Active Cancer of colon Confirmed Active Cataract Confirmed Active Cirrhosis - non-alcoholic Confirmed Active Endometrial polyp Confirmed Active Family history of colon cancer 1 Confirmed Active Fatty liver Confirmed Active Hearing loss Confirmed Active Heart murmur Confirmed Active HLD - Hyperlipidemia Confirmed Active HTN - Hypertension Confirmed Active Osteoarthritis Confirmed Active Ovarian mass Confirmed Active Perforation of colon Confirmed Active Renal insufficiency 2 Confirmed Active Need for hepatitis B vaccination Confirmed Active Squamous blepharitis 3 Confirmed Active Tubulovillous adenoma Confirmed Active 1Family history is remarkable for mother being diagnosed with colon cancer in her 70s, brother from advanced colorectal cancer at 51 years old. 2mild 3left eye, upper and lower lids Procedures Procedure Date Related Diagnosis Body Site Status Esophagogastroduodenoscopy a nd Colonoscopy with Biopsy 1 10/12/22 Comple crys Colonoscopy, flexible; diagn ostic, including collection of specimen(s) by brushing or washing, when performed (separate procedure) 2 10/11/22 Completed Esophagogastroduodenoscopy, flexible, transoral; diagnostic, including collection of specimen(s) by brushing or washing, when performed (separate procedure) 3 10/11/22 Completed Bilateral oopherectomy Co mpleted Colonoscopy Completed Large bowel resection 4 C ompleted Total knee replacement Co mpleted 1auto-populated from documented surgical case 2showed patent colorectal anastomosis. There was no chronic ileocolitis noted. There is angiodysplastic lesion in the proximal ascending colon and cecum that was 6 to 8 mm in size. There was no stigmata of bleeding. Segmental biopsies taken throughout the colon were negative. 3showed mild portal hypertensive gastropathy. [id number] Social History Social History Type Response Tobacco Never tobacco user T obacco Use:. Sex Patient Care team information Care Team Personnel Name: EDGAR ZUNIGA Position: No Access Member Role: Primary Care Physician Address: Address: [address] [place] [phone] [place] Care Team Related Persons Name: CRYSTAL PARISH Name: CRUZITO PARISH Address: Home Name: G[place]ILEA PARISH Address: Home
--- OUTSIDE RECORDS SUMMARY | 2023-05-22 09:36 | XMS_ITS | Continuity of Care Document ---
Author Name Unknown Organization [facility] Address [address] [place] [phone] Care Team Providers Care Solution Consultant Name Role Phone EDGAR ZUNIGA Primary Care Physician Encounter [facility] FIN NBR [id number] Date(s): 04/06/23 - 04/06/[address] [address]- Discharge Disposition: Home or Self Care Attending Physician: EDGAR ZUNIGA Admitting Physician: EDGAR ZUNIGA Referring Physician: EDGAR ZUNIGA Allergies, Adverse Reactions, Alerts Substance Reaction Severity [...] were negative. 3showed mild portal hypertensive gastropathy. [id number] Results Radiology Reports * Exam Date Time Procedure Performing Provider Status 04/06/23 11:09 AM MG Mammo Screening Bilateral DomainUse r, Generated; Auth (Verified) Notes: (MG Mammo Screening Bilateral) Reason For Exam: SCREENING MG Mammo Screening Bilateral EXAM DESCRIPTION: MG Mammo Screening Bilateral 04/06/2023 INDICATION: SCREENING RISK FACTOR: Personal history of left breast cancer with previous lumpectomy COMPARISON: Prior studies most recently dated 03/22/2022 and 03/08/2021 BREAST DENSITY: There are scattered areas of fibroglandular density. FINDINGS: MLO and CC views were performed with digital breast tomosynthesis. Images were reviewed using computer aided detection. No asymmetry, architectural distortion or suspicious grouping of calcifications to suggest malignancy in either breast. Stable area of postsurgical scarring in the left upper outer quadrant region with scattered benign-type calcifications bilaterally which were seen previously. ASSESSMENT: No mammographic evidence of malignancy. Benign findings. BI-RADS category 2. RECOMMENDATION: Screening mammography in 1 year JOB #: [id number] Final Signed by: Carlos Lafleur MD Signed (Electronic Signature): 04/06/2023 11:41 am Social History Social History Type Response Tobacco Never tobacco user T obacco Use:. Sex MG Breast - bilateral Screening * Carlos Lafleur MD: VERIFY, VERIFY Event Display: Report EXAM DESCRIPTION: MG Mammo Screening Bilateral 04/06/2023 INDICATION: SCREENING RISK FACTOR: Personal history of left breast cancer with previous lumpectomy COMPARISON: Prior studies most recently dated 03/22/2022 and 03/08/2021 BREAST DENSITY: There are scattered areas of fibroglandular density. FINDINGS: MLO and CC views were performed with digital breast tomosynthesis. Images were reviewed using computer aided detection. No asymmetry, architectural distortion or suspicious grouping of calcifications to suggest malignancy in either breast. Stable area of postsurgical scarring in the left upper outer quadrant region with scattered benign-type calcifications bilaterally which were seen previously. ASSESSMENT: No mammographic evidence of malignancy. Benign findings. BI-RADS category 2. RECOMMENDATION: Screening mammography in 1 year JOB #: [id number] Final Signed by: Carlos Lafleur MD Signed (Electronic Signature): 04/06/2023 11:41 am Patient Care team information Care Team Personnel Name: EDGAR ZUNIGA Position: No Access Member Role: Primary Care Physician Address: Address: [address] [place] [phone] [place] Care Team Related Persons Name: CRYSTAL PARISH Name: CRUZITO PARISH Address: Home Name: GALILEA PARISH Address: Home
--- OUTSIDE RECORDS SUMMARY | 2023-05-22 09:36 | XMS_ITS | Continuity of Care Document ---
Author Name Unknown Organization [facility] Address [address] [place] [phone] Care Team Providers Care Chronic Care Nurse Name Role Phone Katherine Hassan Primary Care Physician Encounter [facility] FIN NBR [id number] Date(s): 11/27/22 - 11/27/[address] [address] Discharge Disposition: Home or Self Care Attending Physician: Jessy Ross APRN Admitting Physician: Jessy Ross APRN Allergies, Adverse Reactions, Alerts Substance Reaction Severity Status codeine Headache Unknown Active penicillin Fever Rash Unknown Active anastrozole Unknown Active Percocet Unknown Active Assessment and Plan Future Appointments Immunizations Given and Recorded Vaccine Date Status Refusal Reason hepatitis B adult vaccine 11/27/22 Given hepatitis [...] Confirmed Active Renal insufficiency 1 Confirmed Active Need for hepatitis B vaccination Confirmed Active Squamous blepharitis 2 Confirmed Active [...] Co mpleted 1auto-populated from documented surgical case [id number] Results Radiology Reports * Exam Date Time Procedure Performing Provider Status 11/27/22 8:02 AM US Abdomen Limited Nataly [place]; Auth (Verified) Notes: (US Abdomen Limited) Reason For Exam: HCC screening,cirrhosis US Abdomen Limited EXAM DESCRIPTION: US Abdomen Limited 11/27/2022 INDICATION: HCC SCREENING,CIRRHOSIS TECHNIQUE: Grayscale and color Doppler ultrasound examination of the right upper quadrant region of the abdomen. COMPARISON: 03/22/2022 FINDINGS: Liver is mildly enlarged measuring 17.2 cm in maximum dimension. Mild hepatic surface nodularity. Mild diffusely increased and coarsened hepatic echotexture suggesting changes of hepatic steatosis and mild cirrhosis as described previously. No focal hepatic lesion identified currently. The small echogenic lesion described on previous study is not identified on current examination. The main portal vein is patent with normal flow direction. No ascites in the right upper quadrant The pancreas is partly obscured by overlying bowel gas. Visualized portions are unremarkable Echogenic, shadowing gallstone in the gallbladder. No gallbladder wall thickening or pericholecystic fluid. No biliary dilatation with common bile duct diameter of 5.1 mm. Negative sonographic Hanson sign Right kidney measures 9.7 cm in maximum dimension. No focal right renal mass, hydronephrosis or perinephric fluid collection The spleen is mildly enlarged measuring 13.9 cm in maximum dimension. IMPRESSION: Mild hepatomegaly with findings suggesting hepatic steatosis and mild changes of cirrhosis as described previously. No focal hepatic lesion identified. The small echogenic lesion described on previous study is not identified currently. Cholelithiasis. No gallbladder wall thickening or pericholecystic fluid. No biliary dilatation Mild splenomegaly. JOB #: [id number] Final Signed by: Carlos Lafleur MD Signed (Electronic Signature): 11/27/2022 8:33 am Social History Social History Type Response Tobacco Never tobacco user T obacco Use:. Sex US Abdomen limited * Carlos Lafleur MD: VERIFY, VERIFY Event Display: Report EXAM DESCRIPTION: US Abdomen Limited 11/27/2022 INDICATION: HCC SCREENING,CIRRHOSIS TECHNIQUE: Grayscale and color Doppler ultrasound examination of the right upper quadrant region of the abdomen. COMPARISON: 03/22/2022 FINDINGS: Liver is mildly enlarged measuring 17.2 cm in maximum dimension. Mild hepatic surface nodularity. Mild diffusely increased and coarsened hepatic echotexture suggesting changes of hepatic steatosis and mild cirrhosis as described previously. No focal hepatic lesion identified currently. The small echogenic lesion described on previous study is not identified on current examination. The main portal vein is patent with normal flow direction. No ascites in the right upper quadrant The pancreas is partly obscured by overlying bowel gas. Visualized portions are unremarkable Echogenic, shadowing gallstone in the gallbladder. No gallbladder wall thickening or pericholecystic fluid. No biliary dilatation with common bile duct diameter of 5.1 mm. Negative sonographic Hanson sign Right kidney measures 9.7 cm in maximum dimension. No focal right renal mass, hydronephrosis or perinephric fluid collection The spleen is mildly enlarged measuring 13.9 cm in maximum dimension. IMPRESSION: Mild hepatomegaly with findings suggesting hepatic steatosis and mild changes of cirrhosis as described previously. No focal hepatic lesion identified. The small echogenic lesion described on previous study is not identified currently. Cholelithiasis. No gallbladder wall thickening or pericholecystic fluid. No biliary dilatation Mild splenomegaly. JOB #: [id number] Final Signed by: Carlos Lafleur MD Signed (Electronic Signature): 11/27/2022 8:33 am Patient Care team information Personnel Name: Katherine Hassan Address: Address: [address] [place] [phone]
--- OUTSIDE RECORDS SUMMARY | 2023-05-22 09:36 | XMS_ITS | Continuity of Care Document ---
Author Name Unknown Organization [facility] Address [address] [place] [address] Care Team Providers Care Hop Strainer Name Role Phone Katherine Hassan Primary Care Physician Encounter [facility] NBR [id number] Date(s): 11/27/22 - 11/27/22 [facility] [address], [place] [address] Encounter Diagnosis Need for hepatitis B vaccination(Discharge Diagnosis) - 11/27/22 Discharge Disposition: Home or Self Care Attending Physician: Bigg Riley MD Allergies, Adverse Reactions, [...] Co mpleted 1auto-populated from documented surgical case [id number] Social History Social History Type Response Tobacco Never tobacco user T obacco Use:. Sex Patient Care team information Personnel Name: Katherine Hassan Address: Address: [address] [place] [phone]
--- OUTSIDE RECORDS SUMMARY | 2023-05-22 09:36 | XMS_ITS | Continuity of Care Document ---
Author Name Unknown Organization [facility] Amb[facility] Address [address] [place] [address] Care Team Providers Care Milieu Counselor Name Role Phone KATHERINE ZUNIGA Primary Care Physician Encounter [facility] FIN NBR [id number] Date(s): 04/06/23 - 04/06/23 [facility] [address] [place], [place] [address] Encounter Diagnosis Cirrhosis - non-alcoholic(Discharge Diagnosis) - 04/06/23 Family history of colon cancer(Discharge Diagnosis) - 04/06/23 Discharge Disposition: Home or Self Care Attending Physician: Jessy Ross APRN Referring Physician: KATHERINE ZUNIGA Allergies, Adverse Reactions, Alerts Substance Reaction Severity Status codeine Headache Unknown Active penicillin Fever Rash Unknown Active anastrozole Unknown Active Percocet Unknown Active Assessment and Plan Future Scheduled Tests Laboratory* AFP, Serum, Tumor Marker LC 04/06/23 Functional Status 04/06/23 Other exposure to Infectious Disease Non e [...] were negative. 3showed mild portal hypertensive gastropathy. [id number] Vital Signs Most recent to oldest [Reference Range]: 1 Temperature Temporal Artery [36-38 Deg C ] 36.4 Deg C (04/06/23 7:59 AM) Apical Heart Rate [60-100 bpm] 64 bpm (04/06/23 7:59 AM) Blood Pressure [90-140/60-90 mmHg] 129/7 8mmHg (04/06/23 7:59 AM) Weight 89.4 kg (04/06/23 7:59 AM) Weight Measured (lbs) 197.093 lb (04/06/23 7:59 AM) Social History Social History Type Response Tobacco Never tobacco user T obacco Use:. Sex Physician Outpatient Note * Jessy Ross APRN W: PERFORM Event Display: Office Clinic Note Physician Authored Date: [id number] [place] PAR[place] :1950 Age:73 years Sex:Female Visit Date:04/06/2023 Primary Care Physician: KATHERINE ZUNIGA Chief Complaint 6-month follow-up cirrhosis and nonalcoholic fatty liver disease. History of Present Illness Patient is a 73-year-old female patient of Dr. Katherine Zuniga with a history of uncomplicated PÉREZ cirrhosis.?? She is here??today as an established patient.?? She denies any concerns today. ?? Patient underwent endoscopic ultrasound at [facility] on 10/30/2017 with liver biopsy done at that time. I do not have the pathology report. Patient has been carrying a diagnosis of Pérez cirrhosis since that time. EGD showed no endoscopic evidence of portal hypertension. She has had no compli cations/decompensation. No family history of liver disease. ?? Patient underwent a perforation of her [...] ??She drinks 2 cups of coffee daily.?? She consumes??2 g sodium diet. ??Denies any??gastrointestinal symptoms,??peripheral edema,??changes in gait or mobility. ??Denies any??cognitive or memory dysfunction.?? Denies increasing abdominal girth. ?? Patient has lost 10 pounds in the last 6 months??due to??diarrhea.?? Denies any??abdominal pain, nausea, vomiting, constipation, diarrhea, melena or hematochezia.?? Weight and appetite stable.?? Denies any pyrosis or dyspepsia. ?? 10/12/2022 EGD showed mild portal??hypertensive gastropathy. ?? 10/12/2022 colonoscopy showed??patent colorectal anastomosis.?? There??was no chronic ileocolitis noted. ??There is angiodysplastic??lesion in the proximal ascending colon??and cecum??that was 6 to 8mm in size.?? There was no stigmata of bleeding.?? Segmental biopsies taken throughout??the colon were negative. ?? 10/26/2022 AFP 4.7, abdominal ultrasound 11/27/2022 mild splenomegaly without??hepatic lesion. ?? Family history is remarkable for mother being diagnosed with colon cancer in her 70s, brother from advanced colorectal cancer at 51 years old. Review of Systems Pertinent positives and negatives are discussed in HPI. Physical Exam Vitals & Measurements T:??36.4?C ??(Temporal Artery)?? HR:??64??(Apical)?? BP:??129/78?? SpO2:??98%?? WT:??89.4??kg?? General: Well-nourished well-developed??female??in no acute distress. HEENT: Head is normocephalic, trachea midline and no cervical lymphadenopathy. ??Sclera are clear. Respiratory: Respirations are even and unlabored. ??Lungs are clear to auscultation. Cardiovascular: Regular rate and rhythm with S1 and S2. Abdomen: Positive bowel sounds x4 quadrants, no masses, no guarding, no tenderness. ??No hepatosplenomegaly. ??Abdomen is soft. Skin: Warm, dry, and pink. ??No spider angiomata or palmar erythema. Neurological: Alert and oriented x3, speech is clear and gait is steady. Psychological: Pleasant, calm and cooperative. 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 ??EGD's showed mild portal hypertensive gastropathy. ??Advised to repeat in 6 months. ??She is immune to hepatitis A but not to hepatitisB.?Third dose of hepatitis B given today.?She is due for HCC screening. ??AFP and abdominal ultrasound ordered.?6 months ago both showed no signs of HCC. ??Patient is encouraged to continue to drink??2 cups of coffee daily. ??She is advised to avoid alcohol??use.?? Weight??loss.?? Will seethe patient back in the office??in 6??months.?? All of her questions were answered today. Ordered: hepatitis B adult vaccine, 1 mL, IM, Once, First Dose: 04/06/23 8:16:00 EDT, Stop Date: 04/06/23 8:16:00 EDT, Physician Stop, Routine AFP, Serum, Tumor Marker LC, Blood, Routine, 04/06/23, Once, Lab Collect, Cirrhosis - non-alcoholic, Order for future visit Follow-up Appointment Request [id number], *Est. 10/06/23 +/- 28 days, Future Order, f/u PÉREZ cirrhosis, In Approximately, [facility] Gastroenterology US Abdomen Limited, 04/06/23, Routine, Reason: cirrhosis, Transport Mode: Ambulatory, Cirrhosis - non-alcoholic, ABN Status: Not Required ?? 2.??Family history of colon cancer??Z80.0 Up-to-date asymptomatic. ??Due for next colonoscopy for colon??screening??in September 2027. ?? Voice recognition software utilized which may result in minor burglar alarm superintendent error. Future Orders AFP, Serum, Tumor Marker LC, Blood, Routine, 04/06/23, Once, Lab Collect, Cirrhosis - non-alcoholic, Order for future visit US Abdomen Limited, 04/06/23, Routine, Reason: cirrhosis, Transport Mode: Ambulatory, Cirrhosis - non-alcoholic, ABN Status: Not Required Problem List/Past Medical History Ongoing Anastomosis Angiodysplasia of colon Aortic valve stenosis Arthralgia Breast cancer Cancer of colon Cataract Cirrhosis - non-alcoholic Endometrial polyp Family history of colon cancer Hearing loss Heart murmur HLD - Hyperlipidemia HTN - Hypertension Need for hepatitis B vaccination Osteoarthritis Ovarian mass Perforation of colon Renal insufficiency Squamous blepharitis Tubulovillous adenoma Historical No qualifying data Procedure/Surgical History ???Colonoscopy, [...] Chondroitin oral capsule, 1 cap, Oral, Daily hepatitis B adult vaccine, 1 mL, IM, Once lisinopril 5 mg oral tablet, 5 mg= [...] Vaccine Date Status hepatitis B adult vaccine 11/27/2022 Given hepatitis B adult vaccine 10/26/2022 Given Comments : Pt will get subsequent doses at PCP at her request. Electronically Signed on 04/06/23 08:29 AM Jessy Ross APRN Patient Care team information Care Team Personnel Name: KATHERINE ZUNIGA Position: No Access Member Role: Primary Care Physician Address: Address: [address] [place] [phone] Care Team Related Persons Name: CRYSTAL PARISH Name: CRUZITO PARISH Address: Home Name: GALILEA PARISH Address: Home
--- OUTSIDE RECORDS SUMMARY | 2023-05-22 09:36 | XMS_ITS | Continuity of Care Document ---
Author Name Unknown Organization [facility] Address [address] [place] [id number] Care Team Providers Care Platform Attendant Name Role Phone EDGAR ZUNIGA Primary Care Physician Encounter [facility] FIN NBR [id number] Date(s): 04/06/23 - 04/06/[address] [id number]- Discharge Disposition: Home or Self Care Attending Physician: Jessy Ross APRN Admitting Physician: Jessy Ross APRN Referring Physician: EDGAR ZUNIGA Allergies, Adverse Reactions, [...] were negative. 3showed mild portal hypertensive gastropathy. [id number] Results Radiology Reports * Exam Date Time Procedure Performing Provider Status 04/06/23 2:29 PM US Abdomen Limited Nataly Mesa; Garima (Verified) Notes: (US Abdomen Limited) Reason For Exam: cirrhosis US Abdomen Limited EXAM DESCRIPTION: US Abdomen Limited 04/06/2023 INDICATION: CIRRHOSIS TECHNIQUE: Grayscale and color Doppler ultrasound examination of the right upper quadrant region of the abdomen. COMPARISON: 11/27/2022 FINDINGS: Liver measures 17.2 cm in maximum dimension and is mildly enlarged. Mild hepatic surface nodularity. Mild diffusely coarsened and increased hepatic echotexture suggesting changes of cirrhosis and hepatic steatosis as described previously. No focal hepatic lesion identified. The main portal vein is patent with normal flow direction No ascites in the right upper quadrant Pancreas is partly obscured by overlying bowel gas. Visualized portions are unremarkable Echogenic, shadowing gallstone which demonstrates mobility measuring 13 mm in diameter. No gallbladder wall thickening or pericholecystic fluid. No biliary dilatation with common bile duct diameter of 5.8 mm. Negative sonographic Hanson sign The spleen is enlarged measuring 13.7 cm in maximum dimension Right kidney measures 9.6 cm in maximum dimension. No focal right renal mass, hydronephrosis or perinephric fluid collection. IMPRESSION: Mild hepatomegaly with findings suggesting changes of cirrhosis and mild hepatic steatosis as described previously. No focal hepatic lesion identified Cholelithiasis. No gallbladder wall thickening or biliary dilatation Mild splenomegaly. JOB #: [id number] Final Signed by: Carlos Lafleur MD Signed (Electronic Signature): 04/06/2023 2:51 pm Social History Social History Type Response Tobacco Never tobacco user T obacco Use:. Sex US Abdomen limited * Carlos Lafleur MD: VERIFY, VERIFY Event Display: Report EXAM DESCRIPTION: US Abdomen Limited 04/06/2023 INDICATION: CIRRHOSIS TECHNIQUE: Grayscale and color Doppler ultrasound examination of the right upper quadrant region of the abdomen. COMPARISON: 11/27/2022 FINDINGS: Liver measures 17.2 cm in maximum dimension and is mildly enlarged. Mild hepatic surface nodularity. Mild diffusely coarsened and increased hepatic echotexture suggesting changes of cirrhosis and hepatic steatosis as described previously. No focal hepatic lesion identified. The main portal vein is patent with normal flow direction No ascites in the right upper quadrant Pancreas is partly obscured by overlying bowel gas. Visualized portions are unremarkable Echogenic, shadowing gallstone which demonstrates mobility measuring 13 mm in diameter. No gallbladder wall thickening or pericholecystic fluid. No biliary dilatation with common bile duct diameter of 5.8 mm. Negative sonographic Hanson sign The spleen is enlarged measuring 13.7 cm in maximum dimension Right kidney measures 9.6 cm in maximum dimension. No focal right renal mass, hydronephrosis or perinephric fluid collection. IMPRESSION: Mild hepatomegaly with findings suggesting changes of cirrhosis and mild hepatic steatosis as described previously. No focal hepatic lesion identified Cholelithiasis. No gallbladder wall thickening or biliary dilatation Mild splenomegaly. JOB #: [id number] Final Signed by: Carlos Lafleur MD Signed (Electronic Signature): 04/06/2023 2:51 pm Patient Care team information Care Team Personnel Name: EDGAR ZUNIGA Position: No Access Member Role: Primary Care Physician Address: Address: [address] [place] [id number] [place] Care Team Related Persons Name: CRYSTAL PARISH Name: CRUZITO PARISH Address: Home Name: GALILEA PARISH Address: Home
[2023-05-22 15:25] LABS: HCT 41.2 % (36.0-46.0); HGB 14.3 g/dL (11.2-15.7); MCH 34.5 pg (27.0-33.0); MCHC 34.7 % (32.0-36.0); MCV 100 fL (80-95); MPV 11.8 fL (8.0-11.0); Platelet Count 85 10^3/uL (130-400); RBC 4.14 10^6/uL (3.93-5.22); RDW-SD 44.5 fL; WBC 3.54 10^3/uL (4.4-10.8)
[2023-05-22 16:05] LABS: Hemoglobin A1C 5.4 % (<5.7)
[2023-05-22 16:22] LABS: ALT 46 U/L (14-59); AST 46 U/L (15-37); Albumin 3.5 g/dL (3.4-5.0); Alkaline Phosphatase 74 U/L (46-116); Anion Gap 6.8 mmol/L (3-11); BUN 17 mg/dL (7-18); Bilirubin, Total 1.7 mg/dL (0.2-1.0); CO2 27.2 mmol/L (21.0-32.0); CREATININE 1.2 mg/dL (0.55-1.02); Calculated LDL 84 mg/dL (<100); Chloride 108 mmol/L (98-107); Cholesterol 171 mg/dL (<200); Glucose 104 mg/dL (74-106); HDL Cholesterol 68 mg/dL (40-60); Potassium 4.5 mmol/L (3.5-5.1); Sodium 142 mmol/L (136-145); Total Protein 6.9 g/dL (6.4-8.2); Triglyceride 95 mg/dL (<150)
== END 2023-05-22 09:31 | disposition home or self-care (01) ==
LOC: NCHCN 09:30
PROVIDERS: PCP Family Medicine; Visit Provider Family Medicine
DX: K74.60 Unspecified cirrhosis of liver (principal); K76.0 Fatty (change of) liver, not elsewhere classified; R79.89 Other specified abnormal findings of blood chemistry; R73.03 Prediabetes; D47.3 Essential (hemorrhagic) thrombocythemia
CPT/HCPCS: 80053; 80061; 85027; 82105; 83036

== ENCOUNTER → 2023-07-27 01:39 | Outpatient (CLI) | payer MEDICARE, SELFPAY ==
--- NOTE | 2023-07-27 15:08 | DI.DEXA_ITS ---
Exam(s) XR DEXA BONE DENSITY W/WO DANIEL EXAM: XR DEXA BONE DENSITY W/WO DANIEL CLINICAL HISTORY: POSTMENOPAUSAL SCREENING, Z78.0 TECHNIQUE: COMPARISON: 09/08/2009. FINDINGS: Lateral Spine Image: Unremarkable. No compression deformities identified. Left hip: Total T-Score: 0.9. This compares to 1.0 on the prior examination. Total Z-Score: 2.7 T- and Z-scores: Within normal limits. Lumbar Spine: Total T-Score: 1.4. This compares to 1.9 on the prior examination. Total Z-Score: 3.7 T- and Z-scores: Within normal limits. IMPRESSION: No evidence of osteoporosis.
== END ==
PROVIDERS: PCP Family Medicine; Visit Provider Family Medicine
DX: Z78.0 Asymptomatic menopausal state (principal); Z13.820 Encounter for screening for osteoporosis
CPT/HCPCS: 77080

== ENCOUNTER → 2023-09-19 02:03 | Outpatient (CLI) | payer MEDICARE, SELFPAY ==
--- NOTE | 2023-09-19 13:53 | DI.US_ITS ---
APPROVED REPORT EXAM: Comprehensive 2D, Doppler, and color-flow Echocardiogram Patient [facility] Coordinator: Rubina Valderrama RDCS (AE) Indications: Mild aortic stenosis Other Information Study Quality: Adequate Conclusion Normal left ventricular wall thickness and chamber size. Ejection fraction is 60%. Wall motion is n ormal Normal right ventricular size and systolic function Both atria are normal in size Aortic valve is sclerotic and trileaflet. Mean gradient is 8, no hemodynamically significant aortic stenosis. There is trace aortic regurgitation Mitral annular calcification, trace mitral regurgitation Normal tricuspid valve with mild regurgitation. Estimated right ventricular systolic pressure is 23 mmHg Wall motion Left Ventricle The left ventricle is normal size. The left ventricular systolic function is normal. The left ventric ular ejection fraction is within the normal range. There is normal left ventricular wall thickness. T here is normal LV segmental wall motion. There is no ventricular septal defect visualized. LVEF is 60 %. Right Ventricle The right ventricle is normal size. The right ventricular systolic function is normal. Atria The left atrium size is normal. The right atrium size is normal. The interatrial septum is intact wit h no evidence for an atrial septal defect. Aortic Valve Aortic valve is calcified. Aortic valve is trileaflet. No hemodynamically significant valvular aortic stenosis. Trace aortic regurgitation. Mitral Valve There is mitral annular calcification. No evidence of mitral valve stenosis. Trace mitral regurgitati on. Tricuspid Valve The tricuspid valve is normal in structure. There is no tricuspid valve stenosis. Mild tricuspid regu rgitation. The RVSP is 23.3 mmHg. Pulmonic Valve The pulmonary valve is normal in structure. There is no pulmonic valvular stenosis. Trace pulmonic re gurgitation. Great Vessels The aortic root is normal in size. The ascending aorta is normal in size. Aortic arch is normal in ca liber. IVC is normal in size and collapses >50% with inspiration. Pericardium There is no pericardial effusion. 2D Dimensions IVSD d PLAX 0.83 cm F: 0.6-1.0 Ao Root d 2.97 cm F: 2.7 - 3.3 LVPW d PLAX 0.83 cm F: 0.6 - 1.0 Ao Asc Diam d 2.88 cm F: 2.3 - 3.1 LVID d PLAX 4.07 cm F: 3.8 - 5.2 LVDs 2.87 cm F: 2.2 - 3.5 LV EF Teichholz 56.8 % FS 29.36 % LV EDV (Teich) 72.8 mL LV ESV (Teich) 31.5 mL M-Mode TAPSE 2.08 cm (M/F) >1.7 Auto EF LV EDV A4C 78.1 mL LV EDV A2C 94.3 mL LV EDV BP 86.1 mL LV ESV A4C 32.5 mL LV ESV A2C 36.7 mL LV ESV BP 34.8 mL LVEF(%) A4C 58.3 % LVEF(%) A2C 61.1 % LVEF(%) BP 59.6 % LV SV A4C 45.5 ml LV SV A2C 57.7 ml LV SV BP 51.3 ml LV CO A4C 2.7 L/min LV CO A2C 3.3 L/min LV CO BP 3.0 L/min HR A4C 58.44 BPM HR A2C 57.96 BPM LV EDV Index (BP) LV Strain Long Pk Overal Avg (s) 16.20 LA Volume LA Length A4C 5.0 cm LA Length A2C 5.8 cm LA Area A4C s 14.28 cm2 LA Area A2C s 20.37 cm2 LA Vol A4C A-L 34.35 mL LA Vol A2C A-L 61.24 mL LA Vol Biplane A-L 49.0 mL LA Vol/BSA A4C A-L LA Vol/BSA A2C A-L LA Vol/BSA BP A-L 25.7 mL/m2 LA Vol A4C MOD 32.7 mL LA Vol A2C MOD 57.1 mL LA Vol BP MOD 46.1 mL RA Volume RA Area A4C 13.4 cm2 RA ESV A4C (A-L) 30.8mL RA Vol/BSA A4C A-L RA Length A4C 4.9 cm RA ESV A4C (MOD) 29.3mL LV Diastology MV E' medial 0.050 (>0.07 m/s) MV E Vmax 0.68 (0.4-1.3 m/s) MV E/E' MED 13.63 (<14) MV A Vmax 0.90 (0.4-1.3 m/s) MV E' lateral 0.077 (>0.1 m/s) E/A Ratio 0.8 MV E/E' LAT 8.78 (<14) MV E' Average 0.063 m/s MV E/E'(average) 10.68 Aortic Valve AoV Vmax 2.04 m/s LVOT Vmax 1.19 m/s AoV Peak Grad 16.6 mmHg LVOT Peak Grad 5.7 mmHg AoV Area (Vmax) 1.78 cm2 LVOT VTI 0.242 m AoV VTI 0.422 m LVOT Mean Grad 2.5 mmHg AoV Mean J Carlos. 1.30 m/s LVOT SV 73.59 mL AoV Mean Grad 8.1 mmHg LVOT Diam s 1.95 cm AoV Area (VTI) 1.75 cm2 Velocity Ratio 0.58 Mitral Valve MV DT 367 (160-240 msec) MV Vmax TIPS 0.87 m/s MV Mean Grad 1.0 (<2mmHg) MV VTI 0.323 m Pulmonary Valve PV Vmax 0.99 (0.5-1.5 m/s) RVOT Vmax 0.85 m/s PV Peak Grad 3.9 mmHg RVOT Peak Gr. 2.9 mmHg PV Mean J Carlos 0.69 m/s RVOT VTI 0.183 m PV Mean Grad 2.2 mmHg RVOT Mean Gr. 1.4 mmHg Tricuspid Valve RA Pressure 3.00 mmHg TR Vmax 2.26 m/s TV S' 0.11 m/s TR Peak Grad 20.3 mmHg RVSP (TR) 23.3 mmHg
== END ==
PROVIDERS: PCP Family Medicine; Visit Provider Family Medicine
DX: I35.0 Nonrheumatic aortic (valve) stenosis (principal)
CPT/HCPCS: 93306

== ENCOUNTER → 2024-02-08 14:58 | Outpatient (CLI) | payer MEDICARE, SELFPAY ==
--- NOTE | 2024-02-08 14:20 | DI.RAD_ITS ---
Exam(s) XR LUMBAR SPINE COMPLETE EXAM: XR LUMBAR SPINE COMPLETE CLINICAL HISTORY: M54.50 Low back pain, unspecified. TECHNIQUE: 2D digital imaging was performed of the lumbar spine. Five images were obtained. AP, la teral, right oblique, left oblique and L5-S1 spot views were obtained. COMPARISON: CR XR DEXA BONE DENSITY W/WO DANIEL from 07/27/2023 FINDINGS: BONES: No fracture or destructive lesion. Small endplate osteophytes are present particularly at L2-3 and L3-L4. Degenerative changes of the facets are seen at L5-S1. DISKS: There is disc space narrowing at T12-L1 and L5-S1. ALIGNMENT: Lumbar spinal alignment is within normal limits. No spondylolysis or spondylolisthesis. SOFT TISSUE: Vascular calcifications are present. IMPRESSION: Mild degenerative changes are seen in the lumbar spine. DATA REPOSITORY: RADIATION DOSE DELIVERED:
--- NOTE | 2024-02-08 14:30 | DI.RAD_ITS ---
Exam(s) XR HIP RT COMPLETE AP PELVIS EXAM: XR HIP RT COMPLETE AP PELVIS CLINICAL HISTORY: LBP, M54.50. TECHNIQUE: 2D digital imaging was performed of the right hip. Two images were obtained. AP pelvis a nd lateral right hip views were obtained. COMPARISON: No exams were available for comparison FINDINGS: BONES: No acute fracture is present. No bony destructive lesion is seen. JOINTS: No dislocation present. The hip joints are well maintained. The sacroiliac joints are intact as is the symphysis pubis. SOFT TISSUE: Normal. IMPRESSION: The right hip is unremarkable. DATA REPOSITORY: RADIATION DOSE DELIVERED:
== END ==
PROVIDERS: PCP Family Medicine; Visit Provider Nurse Practitioner Family
DX: M25.551 Pain in right hip (principal); M51.36 Other intervertebral disc degeneration, lumbar region
CPT/HCPCS: 72110; 73502

== ENCOUNTER 2024-04-30 21:03 | Emergency (ER) | payer MEDICARE, SELFPAY ==
[2024-04-30 21:12] VITALS: BP 138/74; PULSE 63; RESP 16; TEMP 36.3
--- NOTE | 2024-04-30 21:22 | ED.GENADUL_ITS ---
Discharge Plan Disposition Patient Disposition: Home Condition: Stable Discharge Details Clinical Impression: Bug bite with infection Primary Care Provider: Katherine Hassan V ED Provider: Gwyn Wooten Home Meds and New Rx's Prescriptions: New cephalexin 500 mg capsule 500 mg PO QID 10 Days Qty: 40 0RF prednisone 20 mg tablet 40 mg PO BID 5 Days Qty: 20 0RF Continued potassium chloride [Klor-Con] 20 MEQ packet 20 meq PO 3X/WK calcium carbonate 600 MG tablet 600 mg PO DAILY cholecalciferol (vitamin D3) [Vitamin D3] 1,000 UNIT capsule 1,000 unit PO DAILY Fish Oil 1 EACH capsule 1 ea PO DAILY Daily Multiple 1 EACH tablet 1 tab-cap PO DAILY biotin 10,000 MCG capsule 10,000 mcg PO DAILY furosemide 20 MG tablet 20 mg PO four times a week metronidazole 55 GM gel with pump 55 gm Topical BID lisinopril 10 MG tablet 10 mg PO DAILY glucosamine sulfate 500 MG capsule 500 mg PO BID docusate sodium [Colace] 100 MG capsule 100 mg PO BID tamoxifen 20 MG tablet 20 mg PO DAILY Discharge Instructions Instructions: Cephalexin, Prednisone, Cellulitis (Skin Infection), Adult ED, Allergic Reaction ED Additional Instructions: You were seen in the emergency department for your infected insect sting. I have sent a prescription for an antibiotic to your pharmacy in [place] as well as a prednisone burst to help with the allergic reaction that is likely coupled with this minor infection. Please take [id number] nondrowsy allergy medicine each morning like Kristi, Claritin or Zyrtec. Please take Benadryl at night to help you sleep as well this will fight the inflammation of the allergic reaction going on. Take regular doses of Aleve like 1 Aleve in the morning and 1 in the evening to help with anti-inflammatory effects. 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 Please return to the emergency department for circumferential severe infection of the lower leg, infection with redness spreading up the leg, fever, drainage of pus from the area. Referrals: Katherine Hassan MD [Primary Care Provider] - Discharge Data Discharge Date/Time-TO BE ENTERED AT DEPARTURE: 04/30/24 21:53 HPI General Date/Time Provider Initiated Documentation: 04/30/24 21:22 . HPI Narrative: 74 year-old female presents to ED today by POV/ambulating with a chief complaint of bug bite to R leg, feels hot and itchy with onset Sunday. Quality described as itchy, swollen patch of skin from unknown bug bite, no radiation to fever, purulent drainage, ecchymosis, red streaking up the leg. Severity is described as moderate. Palliating factors include nothing specific. Provoking factors include nothing specific. Patient not anticoagulated. Related Data Home Medications Medication Instructions Recorded Confirmed docusate sodium 100 mg capsule 100 mg PO BID 05/05/13 04/30/24 (Colace) glucosamine sulfate 500 mg capsule 500 mg PO BID 05/05/13 04/30/24 lisinopril 10 mg tablet 10 mg PO DAILY 05/05/13 04/30/24 potassium chloride 20 mEq oral 20 meq PO 3X/WK 04/17/16 04/30/24 packet (Klor-Con) calcium carbonate 600 mg PO DAILY 12/11/16 04/30/24 cholecalciferol (vitamin D3) 25 1,000 unit PO DAILY 12/11/16 04/30/24 mcg (1,000 unit) capsule (Vitamin D3) multivitamin-ferrous 1 tab-cap PO DAILY 12/11/16 04/30/24 fumarate-folic acid 18 mg-400 mcg tablet (Daily Multiple) omega-3 fatty acids-fish oil 340 1 ea PO DAILY 12/11/16 04/30/24 mg-1,000 mg capsule (Fish Oil) biotin 10,000 mcg capsule 10,000 mcg PO DAILY 02/05/17 04/30/24 furosemide 20 mg tablet 20 mg PO four times a week 02/05/17 04/30/24 metronidazole 1 % topical gel with 55 gm topical BID 02/05/17 04/30/24 pump tamoxifen 20 mg tablet 20 mg PO DAILY 02/05/17 04/30/24 cephalexin 500 mg capsule 500 mg PO QID 10 days #40 caps 04/30/24 prednisone 20 mg tablet 40 mg (2 x 20 mg) PO BID 5 days 04/30/24 #20 tabs Previous Rx's Medication Instructions Recorded cephalexin 500 mg capsule 500 mg PO QID 10 days #40 caps 04/30/24 prednisone 20 mg tablet 40 mg (2 x 20 mg) PO BID 5 days 04/30/24 #20 tabs Allergies Allergy/AdvReac Type Severity Reaction Status Date / Time Penicillins Allergy Mild Hives Unverified 02/15/17 08:09 codeine AdvReac Intermediate Headache Unverified 02/15/17 08:09 oxycodone [Oxycodone] AdvReac Mild Visual Unverified 02/15/17 08:09 Disturbances General Stated Complaint: InsectBite APRIL: 4 Review of Systems All systems reviewed & are unremarkable except as noted in HPI and below Exam Narrative Exam Narrative: GENERAL APPEARANCE: Well-nourished, non-toxic, awake and alert, atraumatic, no acute distress. SKIN: Warm, pink, dry, small 3-4 cm macular erythematous patch to the lateral right distal calf, no peoples erythema or fluctuance, no lymphadenitis, no purulent drainage. HEAD: Normocephalic, atraumatic, normal hair distribution for gender/age. EYES: Pupils PERRLA, EOMs intact without nystagmus, normal conjunctiva, no exudates on lids/lashes. ENT: Nares patent, no circumoral cyanosis, no facial swelling NECK: Supple, trachea midline, painless cervical ROM. LUNGS/CHEST: Non-labored respirations, normal A/P diameter, symmetrical expansion, no chest wall deformity HEART (CV/PV): No peripheral edema, no JVD. ABDOMEN: Soft, non-distended, no guarding, no tenderness. MSK: Normal ROM, no swelling/deformity to bilateral UEs or LEs, moving all extremities without weakness, no cyanosis, spine midline without tenderness, normal curvature. NEURO: Mental Status AAOx4 - alert to person, place, time, events No facial droop, no forehead involvement. Motor: No focal weakness - strength 5/5 in bilateral UEs and LEs, proximal and distal, symmetric. Sensory: sensation intact to light touch globally. Gait normal: patient ambulated without ataxia into ED room. PSYCH: euthymic, cooperative, pleasant, appropriate speech Course Vital Signs Vital signs: Vital Signs Temperature 36.3 C L 04/30/24 21:12 Pulse 63 04/30/24 21:12 Respiratory Rate 16 04/30/24 21:12 Blood Pressure 138/74 04/30/24 21:12 Temperature 36.3 C L 04/30/24 21:12 Temperature Source Skin 04/30/24 21:12 Pulse 63 04/30/24 21:12 Respiratory Rate 16 04/30/24 21:12 Blood Pressure 138/74 04/30/24 21:12 Blood Pressure Position Sitting 04/30/24 21:12 Oxygen Delivery Method Room Air 04/30/24 21:12 Oxygen Flow Rate 0 04/30/24 21:12 Pain Level 9 04/30/24 21:12 Medical Decision Making This dictation utilizes [id number] dictation software and may contain unedited grammatical errors. 74 year-old female presents to ED today by POV/ambulating with a chief complaint of bug bite to R leg, feels hot and itchy with onset Sunday. Quality described as itchy, swollen patch of skin from unknown bug bite/sting, no radiation to fever, purulent drainage, ecchymosis, red streaking up the leg. Severity is described as moderate. Palliating factors include nothing specific. Provoking factors include nothing specific. Patients' medical history: Noncontributory. Family and social history: Noncontributory. Pertinent exam findings / vital signs include small 3-4 cm macular erythematous patch to the lateral right distal calf, no peoples erythema or fluctuance, no lymphadenitis, no purulent drainage. Differential / pathologies of concern include cellulitis, insect bite/sting, unlikely erythema migrans. Diagnostic studies of: -none. Interventions of: -ABX and prednisone Rx ED Course/Assessment/Plan: 74-year-old female was stung or bitten by an unknown insect days ago has mild macular erythema to the right distal calf, no purulent drainage or abscess seen, no concerns for systemic infection with stable vitals, patient has a mild cellulitic area I did prescribe Keflex and prednisone to help with swelling and treat the mild cellulitis, strict return criteria for increasing pain, drainage of pus, large swelling, red streaking up the leg. Findings not consistent with sepsis, lymphadenitis. Disposition of Bug Bite with Infection. Patient verbalized understanding of the plan and return to ED criteria and engaged in shared decision making. Medical Records Medical records reviewed: Yes I reviewed the patient's medical records. Quality:SDOH Health Related Social Needs: No Data to Display PFSH All Active Problems (Updated 04/30/24 @ 21:23 by ALBARO Garcia) Bug bite with infection (Acute) Sensorineural hearing loss of both ears (Acute) Neoplasm of unspecified behavior of bone, soft tissue, and skin (Acute) Lesion of eyelid (Acute) Surgical History (Updated 08/14/18 @ 14:33 by [employer] [place]) low anterior colon resection ganglion cyst on wrist Replacement of total knee joint x 2 Colonoscopy - IV Sedation (08/15/16) Biopsy of breast L cancer Family History Mother Colon cancer Brother Colon cancer Social History Smoking/Tobacco Use Status: Never Smoking risk assessment performed?: Yes Drug use: Never
[2024-04-30] MEDS: Cephalexin 500 MG CAP, 2 CAPS/BTL PO (21:45)
[2024-04-30] MEDS: diphenhydrAMINE 25 MG CAP PO (21:46)
== END 2024-04-30 21:53 | disposition home or self-care (01) ==
LOC: ER 21:30
PROVIDERS: Emergency Provider Physician Assistant; PCP Family Medicine
DX: S80.861A Insect bite (nonvenomous), right lower leg, initial encounter (principal); L08.9 Local infection of the skin and subcutaneous tissue, unspecified; W57.XXXA Bitten or stung by nonvenomous insect and other nonvenomous arthropods, initial encounter
CPT/HCPCS: 99283; 99284

== ENCOUNTER 2024-05-22 08:55 | Outpatient (REF) | payer MEDICARE, SELFPAY ==
[2024-05-22 15:27] LABS: HCT 39.8 % (36.0-46.0); HGB 13.4 g/dL (11.2-15.7); MCH 34.3 pg (27.0-33.0); MCHC 33.7 % (32.0-36.0); MCV 102 fL (80-95); RBC 3.91 10^6/uL (3.93-5.22); RDW 12.6 % (11.7-14.6); RDW-SD 47.2 fL; WBC 2.93 10^3/uL (4.4-10.8)
[2024-05-22 15:43] LABS: Hemoglobin A1C 5.7 % (<5.7)
[2024-05-22 16:12] LABS: ALT 37 U/L (14-59); AST 32 U/L (15-37); Albumin 3.3 g/dL (3.4-5.0); Alkaline Phosphatase 68 U/L (46-116); Anion Gap 7.5 mmol/L (3-11); BUN 13 mg/dL (7-18); Bilirubin, Total 2.07 mg/dL (0.2-1.0); CO2 27.5 mmol/L (21.0-32.0); Calcium 9.1 mg/dL (8.5-10.1); Calculated LDL 114 mg/dL (<100); Chloride 109 mmol/L (98-107); Cholesterol 217 mg/dL (<200); Estimated GFR 58.75 (mL/min/1.73m2); Glucose 94 mg/dL (74-106); HDL Cholesterol 86 mg/dL (40-60); Potassium 4.1 mmol/L (3.5-5.1); Sodium 144 mmol/L (136-145); Total Protein 6.1 g/dL (6.4-8.2); Triglyceride 86 mg/dL (<150)
[2024-05-23 09:42] LABS: AFP Tumor Marker 3.1 ng/mL (<8.1)
[2024-05-23 10:37] LABS: Lyme Ab w Rflx to Lyme Confirm Negative (Negative)
[2024-05-25 00:02] LABS: Anaplasma phagocytophilum Negative (Negative); B. miyamotoi PCR Negative (Negative); Babesia divergens/MO-1 Negative (Negative); Babesia duncani Negative (Negative); Babesia microti Negative (Negative); Ehrlichia chaffeensis Negative (Negative); Ehrlichia ewingii/canis Negative (Negative); Ehrlichia muris eauclairensis Negative (Negative)
== END 2024-05-22 08:56 | disposition home or self-care (01) ==
LOC: NCHCN 08:55
PROVIDERS: PCP Family Medicine; Visit Provider Family Medicine
DX: I10 Essential (primary) hypertension (principal); R73.03 Prediabetes; D47.3 Essential (hemorrhagic) thrombocythemia; E78.5 Hyperlipidemia, unspecified; M25.50 Pain in unspecified joint; R97.8 Other abnormal tumor markers
CPT/HCPCS: 80053; 80061; 85027; 87798; 82105; 83036; 84443; 86618

== ENCOUNTER 2024-07-07 01:09 | Outpatient (CLI) | payer MEDICARE, SELFPAY ==
--- NOTE | 2024-07-07 08:15 | DI.MRI_ITS ---
Exam(s) MR LUMBAR SPINE WO EXAM: MR LUMBAR SPINE WO CLINICAL HISTORY: PAIN IN R HIP JOINT, M25.551. TECHNIQUE: Multiplanar multisequence MRI of the Lumbar spine was performed. COMPARISON: CR XR LUMBAR SPINE COMPLETE from 02/08/2024 FINDINGS: Bones: There is a transitional type vertebral body at the lumbosacral junction, with partial lumbarization o f S1. There is small disc at S1-2.. The vertebral body heights are well maintained. Alignment: Unremarkable. The marrow signal characteristics are unremarkable. Cord: The conus tip ends at the T12 level. It is of normal size and signal intensity. T12-L1: No focal disc herniation is present. No central spinal canal stenosis.No neural foraminal st enosis. L1-2: No focal disc herniation is present. No central spinal canal stenosis.No neural foraminal sten osis. L2-3: No focal disc herniation is present. No central spinal canal stenosis.No neural foraminal deuce nosis. L3-4: Minimal disc bulging. Facet degenerative changes. No focal disc herniation is present. No central spinal canal stenosis.No neural foraminal stenosis. L4-5: No focal disc herniation is present. Facet degenerative changes encroach upon the lateral aspe ct of the central canal. Minimal overall central spinal canal stenosis.No neural foraminal stenosis . L5-S1: No focal disc herniation is present. Mild facet degenerative changes. No central spinal tom l stenosis.No neural foraminal stenosis. The visualized SI joints and sacrum are unremarkable. Soft tissues: The paraspinal soft tissues are unremarkable. IMPRESSION: No evidence of disc herniation at any level. Facet degenerative changes, greatest at L4-5 cause slight central canal stenosis. DATA REPOSITORY:
== END 2024-07-07 01:29 ==
LOC: DI 01:10
PROVIDERS: PCP Family Medicine; Visit Provider Family Medicine
DX: M25.551 Pain in right hip (principal)
CPT/HCPCS: 72148

== ENCOUNTER 2024-12-04 18:27 | Emergency (ER) | payer MEDICARE, SELFPAY ==
[2024-12-04 18:34] VITALS: BP 154/79; PULSE 72; RESP 20; TEMP 36.4; O2SAT 98
[2024-12-04] MEDS: Tetracaine 0.5% 4 ML BTL OP (19:13)
[2024-12-04] MEDS: Fluorescein STRIPS 100/BOX 1 MG OP (19:13)
[2024-12-04 19:15] VITALS: BP 154/79; PULSE 72; RESP 20; TEMP 36.4; O2SAT 98
--- NOTE | 2024-12-04 19:21 | ED.GENADUL_ITS ---
Discharge Plan Disposition Patient Disposition: Home Condition: Stable Discharge Details Clinical Impression: Subconjunctival hemorrhage of right eye Primary Care Provider: Katherine Hassan V ED Provider: Yesi Garibay Home Meds and New Rx's Prescriptions: New Artificial Tears (cmc) 1 % drops 1 drp ophthalmic (eye) 4-6XD PRNQty: 15 0RF No Action gabapentin 100 mg capsule 100 mg PO DAILY Rx Instructions: Take 2 capsule by mouth in the AM and 2 in the PM hydrocortisone valerate 0.2 % ointment 1 applic topical BID PRN Lumigan 0.01 % drops 1 drp ophthalmic (eye) DAILY simvastatin 10 mg tablet 10 mg PO DAILY famciclovir 125 mg tablet 125 mg PO Q12H PRN Rx Instructions: prn cold sores Refresh Classic (PF) 1.4-0.6 % dropperette 1 drp ophthalmic (eye) QHS PRN calcium carbonate 600 MG tablet 600 mg PO DAILY cholecalciferol (vitamin D3) [Vitamin D3] 1,000 UNIT capsule 1,000 unit PO DAILY Fish Oil 1 EACH capsule 1 ea PO DAILY Daily Multiple 1 EACH tablet 1 tab-cap PO DAILY biotin 10,000 MCG capsule 10,000 mcg PO DAILY furosemide 20 mg tablet 20 mg PO DAILY metronidazole 1 % gel with pump 1 applic topical BID PRN potassium chloride [Klor-Con] 20 mEq packet 20 meq PO DAILY lisinopril 10 MG tablet 10 mg PO DAILY glucosamine sulfate 500 MG capsule 500 mg PO BID docusate sodium [Colace] 100 MG capsule 100 mg PO BID tamoxifen 20 MG tablet 20 mg PO DAILY Discharge Instructions Instructions: Subconjunctival hemorrhage Additional Instructions: You were seen in the emergency department today for an injury to your eye. In our department you do full physical examination performed, and you were noted to have some breakage of the blood vessels underneath the first clear layer of the eye. This is called a subconjunctival hemorrhage. It is not dangerous, but it can be very disturbing to look at. You did not have any evidence of abrasions or other injuries to the eye, and did not have any foreign bodies in your eye. It is safe for you to use all of your home medications and eyedrops as prescribed, and continue to wear your glasses. If you are feeling any discomfort, you can use the artificial tears that I prescribed, or an alternative [id number] brand, and I do recommend keeping it in the fridge to keep it cool so that it is more soothing. It can take 10 to 14 days for this blood to go away. If you notice that it persist for longer than 2 weeks you need to be seen by either your doctor or an eye doctor. You should be seen sooner if you develop changes in your vision or worsening pain. Thank you for allowing us to be part of your care. Discharge Data Discharge Date/Time-TO BE ENTERED AT DEPARTURE: 12/04/24 19:30 HPI General Mode of arrival: ambulatory . Date/Time Provider Initiated Documentation: 12/04/24 18:43 . Limitations to Documentation: physical limitation (Hard of hearing) . Information obtained by: patient, family and old records reviewed . HPI Narrative: HPI: This is a 74-year-old female patient presenting for evaluation of an eye injury. The patient reports that she was watching television, and went up to scratch her eye, noticed some mild discomfort and looked in the mirror and noticed some bleeding in her eye. She states that she presented to care immediately for this condition. Feels like her eyesight is a little bit blurry, though she states that she normally wears glasses. She does not wear contacts. She did not put anything in her eye and does not think that she has any foreign bodies. Prior to this event she was in her normal state of health and this is an isolated complaint. She does not take blood thinning medications. Exam: Gen: Awake and alert, in no apparent distress HEENT: Non-icteric sclera, pupils are equal and reactive at 3 mm bilaterally, EOMs are full and without nystagmus. The patient has a subconjunctival hemorrhage of the right eye on the lateral hemisphere, with no corneal abrasion or fluorescein uptake on fluorescein examination. No foreign bodies visualized on bright light exam or with eversion of the eyelid. No hyphema appreciated. Benjie sign negative. Neck: Supple Lungs: No apparent respiratory distress, normal respiratory effort. CV: Appears well perfused Abdomen: Non-distended MSK: Moves 4 extremities without apparent limitation in ROM Skin: Visualized skin without rashes, cyanosis. Neuro: Normal Gait, no obvious focal deficits or facial asymmetry. Speaks in full, clear sentences. Psych: Appropriate for situation. MDM: This is a 74-year-old female patient presenting for evaluation of an eye injury. Exam is most consistent with a subconjunctival hemorrhage. No evidence for open globe, corneal abrasion or ulcer, or foreign body. ED Course: Reassurance was offered to the patient, and I did provide her with a prescription for artificial tears, and recommended that she keeps them in the fridge so that they are cool and soothing. At this time, the patient has had a full medical evaluation and is safe for discharge to home. They are hemodynamically stable, ambulatory, and tolerating PO. They are understanding of the follow-up plan and return precautions. They left our facility without incident. Yesi Garibay MD Related Data Home Medications ?Medication ?Instructions ?Recorded ?Confirmed docusate sodium 100 mg capsule 100 mg PO BID 05/05/13 12/04/24 (Colace) glucosamine sulfate 500 mg capsule 500 mg PO BID 05/05/13 12/04/24 lisinopril 10 mg tablet 10 mg PO DAILY 05/05/13 12/04/24 calcium carbonate 600 mg PO DAILY 12/11/16 12/04/24 cholecalciferol (vitamin D3) 25 1,000 unit PO DAILY 12/11/16 12/04/24 mcg (1,000 unit) capsule (Vitamin D3) multivitamin-ferrous 1 tab-cap PO DAILY 12/11/16 12/04/24 fumarate-folic acid 18 mg-400 mcg tablet (Daily Multiple) omega-3 fatty acids-fish oil 340 1 ea PO DAILY 12/11/16 12/04/24 mg-1,000 mg capsule (Fish Oil) biotin 10,000 mcg capsule 10,000 mcg PO DAILY 02/05/17 12/04/24 tamoxifen 20 mg tablet 20 mg PO DAILY 02/05/17 12/04/24 bimatoprost 0.01 % eye drops 1 drp ophthalmic (eye) DAILY 08/06/24 12/04/24 (Lumigan) gabapentin 100 mg capsule 100 mg PO DAILY 08/06/24 12/04/24 hydrocortisone valerate 0.2 % 1 applic topical BID PRN 08/06/24 12/04/24 topical ointment simvastatin 10 mg tablet 10 mg PO DAILY 08/06/24 12/04/24 famciclovir 125 mg tablet 125 mg PO Q12H PRN 08/13/24 12/04/24 furosemide 20 mg tablet 20 mg PO DAILY 08/13/24 12/04/24 metronidazole 1 % topical gel with 1 applic topical BID PRN 08/13/24 12/04/24 pump polyvinyl alcohol-povidone (PF) 1 drp ophthalmic (eye) QHS PRN 08/13/24 12/04/24 1.4 %-0.6 % eye drops in a dropperette (Refresh Classic (PF)) potassium chloride 20 mEq oral 20 meq PO DAILY 08/13/24 12/04/24 packet (Klor-Con) carboxymethylcellulose sodium 1 % 1 drp ophthalmic (eye) 4-6XD PRN 12/04/24 eye drops (Artificial Tears #15 mL (carboxymethylcellulose)) Previous Rx's ?Medication ?Instructions ?Recorded carboxymethylcellulose sodium 1 % 1 drp ophthalmic (eye) 4-6XD PRN 12/04/24 eye drops (Artificial Tears #15 mL (carboxymethylcellulose)) Allergies Allergy/AdvReac Type Severity Reaction Status Date / Time Penicillins Allergy Mild Hives Verified 12/04/24 18:40 acetaminophen (From Percocet) Allergy Unknown Other (See Verified 12/04/24 18:40 Comment) tramadol Allergy Unknown Other (See Verified 12/04/24 18:40 Comment) codeine AdvReac Intermediate Headache Verified 12/04/24 18:40 oxycodone (Oxycodone) AdvReac Mild Visual Verified 12/04/24 18:40 Disturbances General Stated Complaint: EyeProblem APRIL: 4 Course Vital Signs Vital signs: Vital Signs Temperature 36.4 C 12/04/24 18:34 Pulse 72 12/04/24 18:34 Respiratory Rate 20 12/04/24 18:34 Blood Pressure 154/79 H 12/04/24 18:34 Pulse Oximetry 98 12/04/24 18:34 Temperature 36.4 C L 12/04/24 19:15 Temperature Source Oral 12/04/24 19:15 Pulse 72 12/04/24 19:15 Respiratory Rate 20 12/04/24 19:15 Blood Pressure 154/79 H 12/04/24 19:15 Blood Pressure Position Sitting 12/04/24 18:34 Pulse Oximetry 98 12/04/24 19:15 Oxygen Delivery Method Room Air 12/04/24 19:15 Oxygen Flow Rate 0 12/04/24 18:34 Pain Level 7 12/04/24 19:15 Medical Decision Making Quality:SDOH Health Related Social Needs: No Data to Display PFSH All Active Problems (Updated 12/04/24 @ 19:22 by Yesi Garibay MD) Subconjunctival hemorrhage of right eye (Acute) Impairment of speech discrimination (Acute) Sacroiliac joint dysfunction of right side (Acute) Sensorineural hearing loss of both ears (Acute) Neoplasm of unspecified behavior of bone, soft tissue, and skin (Acute) Lesion of eyelid (Acute) Medical History Wears hearing aid in both ears Primary malignant neoplasm of female breast Paresthesia Heart murmur Pre-diabetes Cholelithiasis Disorder of eyelid Essential hypertension Joint pain Hyperlipemia Cough Spasm Disorder of kidney and ureter Localized edema Portal hypertensive gastropathy Obesity Osteoarthritis Acute gastroenteritis Insect bite Osteoarthritis of knee Cirrhosis of liver Noninflammatory disorder of cervix Steatosis of liver Aortic stenosis Disorder of nail Adjustment disorder Splenomegaly Hearing loss Polyp of corpus uteri Essential thrombocythemia Pain of right hip joint Post-menopausal bleeding (12/11/16) Left tubo-ovarian mass (12/11/16) Endocervical polyp (12/11/16) Surgical History low anterior colon resection ganglion cyst on wrist Replacement of total knee joint x 2 Colonoscopy - IV Sedation (08/15/16) Biopsy of breast L cancer Family History (Updated 08/06/24 @ 13:33 by Carol Bautista) Mother Colon cancer Alzheimer dementia Brother Colon cancer Father Blood disorder Sister Heart disease Brother Hypertension Colon cancer Social History (Updated 08/13/24 @ 10:58 by Vickie Alcala, RN) Smoking/Tobacco Use Status: Never Smoking risk assessment performed?: Yes Alcohol Intake: never Drug use: Never Housing: house
== END 2024-12-04 19:30 | disposition home or self-care (01) ==
PROVIDERS: Emergency Provider Emergency Medicine; PCP Family Medicine
DX: H11.31 Conjunctival hemorrhage, right eye (principal)
CPT/HCPCS: 99283

== ENCOUNTER 2025-05-29 19:21 | Outpatient (REF) | payer MEDICARE, SELFPAY ==
[2025-05-29 16:01] LABS: Abs Immature Grans 0.01 10^3/uL (0.0-0.06); HCT 41.5 % (36.0-46.0); HGB 14.1 g/dL (11.2-15.7); Immature Grans % 0.2 %; MCH 33.3 pg (27.0-33.0); MCHC 34.0 % (32.0-36.0); MCV 98 fL (80-95); RBC 4.23 10^6/uL (3.93-5.22); RDW 12.4 % (11.7-14.6); RDW-SD 44.7 fL; WBC 4.29 10^3/uL (4.4-10.8)
[2025-05-29 16:09] LABS: INR 1.0 (0.9-1.1); Prothrombin Time 9.9 sec (9.1-11.1)
[2025-05-29 16:13] LABS: ALT 33 U/L (14-59); AST 38 U/L (15-37); Albumin 3.7 g/dL (3.4-5.0); Alkaline Phosphatase 79 U/L (46-116); Anion Gap 9.3 mmol/L (3-11); BUN 13 mg/dL (7-18); Bilirubin, Total 1.8 mg/dL (0.2-1.0); CO2 27.7 mmol/L (21.0-32.0); Calcium 9.3 mg/dL (8.5-10.1); Chloride 107 mmol/L (98-107); Estimated GFR 58.39 (mL/min/1.73m2); Glucose 99 mg/dL (74-106); Potassium 4.9 mmol/L (3.5-5.1); Sodium 144 mmol/L (136-145); Total Protein 6.8 g/dL (6.4-8.2)
[2025-05-29 16:16] LABS: RBC Morphology Normal
[2025-05-29 16:17] LABS: Hemoglobin A1C 5.2 % (<5.7)
== END 2025-05-29 19:22 | disposition home or self-care (01) ==
LOC: NCHCN 19:21
PROVIDERS: PCP Family Medicine; Visit Provider Family Medicine
DX: Z01.818 Encounter for other preprocedural examination (principal); K74.60 Unspecified cirrhosis of liver
CPT/HCPCS: 80053; 83036; 85025; 85610; 85730